=== PATIENT | male | born 1955 | race Caucasian/White ===

== ENCOUNTER → 2017-12-19 09:45 | Day surgery (SDC) | payer BC ==
[~2017-12-19 09:45] MED LIST: Buffered Lidocaine 0.9% SYRIN* 5 ML/SYR SYRINGE INTRADERM ONE; Bupivacaine 0.5%* 50 ML VIAL ONE; Dexamethasone IV* 4 MG/ML 1 ML (4 MG) IV SLOW PU ONE; Dexamethasone IV* 4 MG/ML 1 ML (4 MG) ONE; Famotidine IV* 10 MG/ML 2 ML (20 mg) IV ONE; Famotidine IV* 10 MG/ML 2 ML (20 mg) ONE; Lidocain 1% EPI 1:100,000 * 30 ML MDV ONE; Ondansetron INJ* 2 MG/ML VIAL ONE
[2017-12-19 10:30] VITALS: BP 143/88
== END | disposition home or self-care (01) ==
LOC: OR 09:45
PROVIDERS: ATTEND Surgery
DX: K42.9 Umbilical hernia without obstruction or gangrene (principal); Z53.9 Procedure and treatment not carried out, unspecified reason
CPT/HCPCS: J1100; J2405

== ENCOUNTER 2019-03-31 19:17 | Inpatient (IN) | payer MEDICARE, OTHER ==
[2019-03-31] MEDS ORDERED: Aspirin 81 mg CHEW TAB* 81 MG TAB.CHEW PO ONE (19:25)
--- NOTE | 2019-03-31 19:44 | ED ---
HPI Chest Pain - HPI Summary HPI Summary: The patient is a 63 y/o M presenting to [facility] accompanied by Petra with sudden onset left anterior CP this afternoon with exertion. He reports that he had been outside walking when the discomfort began. He is unable to discretely describe the pain, but he notes it was a discomfort. The CP is not currently present. He denies SOB, nausea, diaphoresis, cough, fever, and calf pain. He had SC at the age of 51, but he did not have any stents placed, and he has not had any cardiac difficulties since. His last cardiac stress test was in 2014. Hx of SC age 51, HLD, dementia (following SC), Alzheimer's (following SC), HTN ( resolved, was taking L-arginine), renal calculi. No cardiac surgery, no asthma, no COPD. FHx of SC in father in age 70s and materal and paternal grandfathers in ages 40s and 60s. Nonsmoker, rare EtOH, no substance use. Has taken ASA this morning. Vital signs while in room: HR 84 bpm, BP 151/93, O2 sat 98%. Home Medications Medication Instructions Recorded Confirmed Type Cholecalciferol (Vitamin D3) 5,000 unit PO EVERY OTHER DAY 09/27/13 03/31/19 History [Vitamin D] Milk Thistle 1 dose PO QAM 09/27/13 03/31/19 History Zinc Sulfate CAP* [Zinc-220 CAP*] 220 mg PO QAM 01/19/16 03/31/19 History Alpha Lipoic Acid [Alpha Lipoic 600 mg PO QAM 12/14/17 03/31/19 History Acid Extra S] Amino Acids [Amino Acid] 1 cap PO QAM 12/14/17 03/31/19 History Ashwagandhi 500 Mg 500 mg PO QAM 12/14/17 03/31/19 History Cyanocobalamin TAB* [Vitamin B12 1,000 mcg PO QAM 12/14/17 03/31/19 History TAB*] Methofolta 1,000 mcg PO QAM 12/14/17 03/31/19 History Nac Supplement 1200 Mg 1,200 mg PO QAM 12/14/17 03/31/19 History Sequim-3 Fatty Acids/Fish Oil 1 cap PO QAM 12/14/17 03/31/19 History [Sequim 3] [place] Bark 400 mg PO QAM 12/14/17 03/31/19 History - History of Current Complaint Chief Complaint: EDChestPainROMI Time Seen by Provider: 03/31/19 19:25 Hx Obtained From: Patient, Family/Electronics Commodity Manager - Petra Onset/Duration: Started Hours Ago - this afternoon (03/31/19), Resolved Timing: Lasting Hours Initial Severity: Moderate Current Severity: None Pain Intensity: 0 Pain Scale Used: 0-10 Numeric Chest Pain Location: Left Anterior Chest Pain Radiates: No Character: Other: - discomfort, unable to describe Aggravating Factor(s): Nothing Alleviating Factor(s): Nothing Associated Signs and Symptoms: Positive: Chest Pain - resolved, Other: - NEGATIVE: calf pain. Negative: Shortness of Breath, Fever, Diaphoresis, Nausea , Cough, Edema - Allergy/Home Medications Allergies/Adverse Reactions: Allergies Allergy/AdvReac Type Severity Reaction Status Date / Time No Known Allergies Allergy Verified 12/19/17 10:22 PMH/Surg Hx/FS Hx/Imm Hx Endocrine/Hematology History: Reports: Other Endocrine/Hematological Disorders - RA Denies: Hx Diabetes, Hx Thyroid Disease Cardiovascular History: Reports: Hx Hypercholesterolemia, Hx Myocardial Infarction - age 51 Denies: Hx Hypertension, Hx Pacemaker/ICD Respiratory History: Reports: Hx Sleep Apnea Denies: Hx Asthma, Hx Chronic Obstructive Pulmonary Disease (COPD) GI History: Denies: Hx Ulcer History: Reports: Hx Kidney Stones - last one 2012, Other Problems/ Disorders Denies: Hx Dialysis, Hx Renal Disease Musculoskeletal History: Reports: Hx Arthritis - Rheumatoid Sensory History: Denies: Hx Cataracts, Hx Contacts or Glasses, Hx Glaucoma, Hx Hearing Aid Opthamlomology History: Denies: Hx Cataracts, Hx Contacts or Glasses, Hx Glaucoma Neurological History: Reports: Hx Dementia - after SC, Other Neuro Impairments/ Disorders - ALZHEIMER'S DISEASE Denies: Hx Seizures, Hx Transient Ischemic Attacks (TIA) Psychiatric History: Denies: Hx Panic Disorder - Cancer History Hx Chemotherapy: No - Surgical History Surgery Procedure, Year, and Place: SPINE/BACK SURGERY (50 YEARS AGO), [facility]. SPINE/BACK SURGERY, [place] (approx 20 years ago). 03/2013 CYSTOSCOPY WITH RIGHT STENT INSERTION, [facility]-REMOVED STENT Hx Anesthesia Reactions: No Infectious Disease History: Denies: Hx Clostridium Difficile, Hx Hepatitis, Hx Human Immunodeficiency Virus (HIV), Hx Shingles, Hx Tuberculosis, History Other Infectious Disease - Family History Known Family History: Positive: Cardiac Disease - SC in father (70s) and maternal and paternal grandfathers (40s, 60s) - Social History Lives: With Family - Alcohol Use: Rare Hx Substance Use: No Substance Use Type: Reports: None Hx Tobacco Use: No Smoking Status (MU): Never Smoked Tobacco Review of Systems Negative: Fever, Skin Diaphoresis Positive: Chest Pain - discomfort (currently resolved) Negative: Shortness Of Breath, Cough Negative: Nausea Positive: Other - NEGATIVE: calf pain. Negative: Edema All Other Systems Reviewed And Are Negative: Yes Physical Exam - Summary Physical Exam Summary: Appearance: Ill-appearing, moderate pain distress, well-nourished Skin: Warm, color reflects adequate perfusion, dry Head: Normal Head/Face inspection, atraumatic Eyes: Conjunctiva clear ENT: Normal inspection Neck: Supple, no nodes, no JVD Respiratory: Lungs clear, normal breath sounds, no respiratory distress Cardio: RRR, No murmur, pulses normal, brisk capillary refill Abdomen: Soft, nontender Bowel sounds: Present Musculoskeletal: Strength Intact/ROM intact, no calf tenderness, no edema. Psychological: Normal Neuro: Alert, muscle tone normal, no focal deficit Triage Information Reviewed: Yes Vital Signs On Initial Exam: Initial Vitals Pulse Resp BP Pulse Ox 77 13 151/93 96 03/31/19 19:29 03/31/19 19:29 03/31/19 19:29 03/31/19 19:29 Vital Signs Reviewed: Yes Diagnostics - Vital Signs Vital Signs Pulse Resp BP Pulse Ox 03/31/19 19:29 77 13 151/93 96 - Laboratory Result Diagrams: 03/31/19 19:55 03/31/19 19:55 Lab Statement: Any lab studies that have been ordered have been reviewed, and results considered in the medical decision making process. - Radiology CXR Radiology Interpretation Completed By: Radiologist Summary of Radiographic Findings: Impression: Radiographically normal chest. ED physician has reviewed this report. - EKG 1922 Cardiac Rate: NL - 76 BPM EKG Rhythm: Sinus Rhythm EKG Comparison: No Significant Change - No change from EKG on 03/28/2013. Summary of EKG Findings: Nml AV/IC CT, nml QTc, LAD (-38), No STEMI. 2122 Cardiac Rate: NL - 72 BPM EKG Rhythm: Sinus Rhythm EKG Comparison: No Significant Change - No change from EKG taken at 1922. Summary of EKG Findings: Nml AV CT, prolonged IV CT (112), nml QTc, left axis (- 38). Re-Evaluation - Re-Evaluation First Eval Re-Evaluation Time: 21:45 Comment: I discussed findings with the patient. We also discussed admission. Chest Pain Course/Dx - Course Course Of Treatment: Patient's medications reviewed. Nurses' notes reviewed. Allergies reviewed. The patient is a 63 y/o M presenting to [facility] accompanied by Petra with sudden onset left anterior chest discomfort this afternoon with exertion that has since resolved. He denies diaphoresis, SOB, cough, nausea , edema, and fever. Hx of SC at age 51. Last stress test in 2014. SC in father ( 70s) and grandfathers (40s, 60s). Upon physical exam, the patient exhibits no acute abnormalities. Blood work reveals INR of 1.12, APTT of 40.0, alkaline phosphatase of 108. D-Dimer is normal at <200. First troponin is 0.06. Second troponin is 0.08. EKG reveals NSR at 76 bpm with nml AV/IC CT, nml QTc, LAD (-38 ). Repeat EKG reveals NSR at 72 bpm with nml AV CT, prolonged IV CT (112), nml QTc, left axis (-38). CXR Impression: Radiographically normal chest. In the ED course, the patient was administered ASA 324mg, Lovenox, and Lipitor. At 2129, I spoke with Dr. Keith, hospitalist, concerning the patient's case; she accpets the patient for admission. Patient is agreeable with this plan. - Chest Pain Differential Diagnosis/HQI/PQRI: Acute SC, ACS, Angina, Pulmonary Embolism - Diagnoses Provider Diagnoses: NSTEMI, initial episode of care - Provider Notifications Discussed Care Of Patient With: Carmen Keith - hospitalist Time Discussed With Above Provider: 21:30 Instructed by Provider To: Other - I spoke with Dr. Keith concerning the patient's case, and she accepts the patient for admission. Discharge - Sign-Out/Discharge Documenting (check all that apply): Patient Departure - Patient is accepted for admission by Dr. Keith. Patient Received Moderate/Deep Sedation with Procedure: No - Discharge Plan Condition: Stable Disposition: ADMITTED TO [facility] - Billing Disposition and Condition Condition: STABLE Disposition: Admitted to [facility] - Attestation Statements Document Initiated by Scribe: Yes Documenting Scribe: Geneva Shen Provider For Whom Scribe is Documenting (Include Credential): Dr. Brandee Pradhan MD Scribe Attestation: Geneva Fountain scribed for Dr. Brandee Pradhan MD on 04/01/19 at 0154. Status of Scribe Document: Ready
[2019-03-31 20:06] LABS: Hematocrit 44 % (42-52); Mean Corpuscular HGB Conc 34 g/dL (31-36); Mean Corpuscular Hemoglobin 30 pg (27-31); Mean Corpuscular Volume 88 fL (80-94); Mean Platelet Volume 8.1 fL (7.4-10.4); Platelet Count 177 10^3/uL (150-450); Red Blood Count 5.06 10^6 /uL (4.18-5.48); Red Cell Distribution Width 14 % (10-15); White Blood Count 4.3 10^3/uL (3.5-10.8)
[2019-03-31 20:19] LABS: INR 1.12 (0.82-1.09)
[2019-03-31 20:24] LABS: ALT 43 U/L (7-52); AST 34 U/L (13-39); Albumin 4.1 g/dL (3.2-5.2); Albumin/Globulin Ratio 1.7 (1-3); Alkaline Phosphatase 108 U/L (34-104); Anion Gap 7 mmol/L (2-11); BUN/Creatinine Ratio 19.3 (8-20); Blood Urea Nitrogen 22 mg/dL (6-24); CO2 Carbon Dioxide 27 mmol/L (22-32); Calcium 9.2 mg/dL (8.6-10.3); Chloride 108 mmol/L (101-111); Creatine Kinase 94 U/L (10-223); EGFR Non-African American 64.5 (>60); Globulin 2.4 g/dL (2-4); Glucose 98 mg/dL (70-100); Magnesium 2.5 mg/dL (1.9-2.7); Sodium 142 mmol/L (135-145); Total Protein 6.5 g/dL (6.4-8.9)
[2019-03-31 20:31] LABS: Troponin I 0.06 ng/mL (<0.04)
[2019-03-31 20:46] LABS: ABS Eosinophils 0.2 10^3/ul (0-0.6); ABS Monocytes 0.7 10^3/ul (0-0.8); ABS Neutrophils 2.4 10^3/ul (1.5-7.7); Eosinophil % 3.5 %; Lymphocyte % 24.1 %
[2019-03-31] MEDS ORDERED: Acetaminophen TAB* 325 MG PO PRN (22:30)
[2019-03-31] MEDS ORDERED: Atorvastatin* 80 MG TAB PO ONE (22:34)
[2019-03-31 22:53] LABS: Troponin I 0.08 ng/mL (<0.04)
[2019-04-01 02:06] LABS: Troponin I 0.07 ng/mL (<0.04)
[2019-04-01] MEDS: Heparin DRIP 25,000 UNITS(*) 25,000 UNITS/500 ML BAG IV SCH (02:16)
--- NOTE | 2019-04-01 05:06 | HP ---
CC: Dr. Jonnathan Beyer * HISTORY AND PHYSICAL: DATE OF ADMISSION: 03/31/19 PCP: Dr. Jonnathan Beeyr. HEALTHCARE PROXY: His , Shaista. CODE STATUS: DNR/DNI. CHIEF COMPLAINT: Few days of progressive intermittent left-sided chest pain. HISTORY OF PRESENT ILLNESS: Mr. Osborne is a 63-year-old man with a history of myocardial infarction, dementia, and nephrolithiasis with pyelonephritis who is presenting with a few days of chest pain. The patient has very poor memory and much history obtained from at the bedside. The patient was in his usual state of health until a few days ago when he began to feel a left-sided chest pain that he actually describes as a pressure. It was not worse with exertion and he has been physically active over the last few days. He also denies that it is worse with deep breath, positional changes, or if he presses on it. He reports that the chest pressure would come and go over the last few days, but it was progressive. He denies associated symptoms such as diaphoresis , shortness of breath, nausea, vomiting, constipation, diarrhea, abdominal pain , or lightheadedness. He states he only has chest pain, which is not bothering him much, and he is not sure if it feels like his prior heart attack. He takes aspirin at home and a statin since his prior heart attack. The patient is not currently experiencing chest pain. PAST MEDICAL HISTORY: 1. Myocardial infarction in 2006. 2. Admission in 2012 for nephrolithiasis complicated by obstruction and pyelonephritis. 3. Dementia. 4. Chronic back pain. HOME MEDICATIONS: 1. Memantine 10 mg twice a day. 2. Rosuvastatin 5 mg daily. 3. Aspirin 81 mg daily. Multiple supplements such as omega-3, ashwagana, vitamin B12. ALLERGIES: No known drug allergies. SOCIAL HISTORY: The patient lives with his . 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 His is his healthcare proxy. He denies current or history of tobacco, alcohol, or other drug use. FAMILY HISTORY: Mother had a stroke in her 60s. Father had multiple myocardial infarctions and from kidney disease. Both grandfathers had myocardial infarction. REVIEW OF SYSTEMS: A complete 10-point review of systems performed and pertinent positives and negatives are listed in the HPI. PHYSICAL EXAMINATION GENERAL: He is a well-appearing man, in no acute distress who is alert, interactive, and makes frequent jokes. VITAL SIGNS: Afebrile, heart rate 60, blood pressure 128/79, respiratory rate 15, oxygen saturation 97% on room air. HEENT: OP clear. Moist mucous membranes. NECK: No JVD. Supple. LUNGS: Clear to auscultation bilaterally. HEART: Regular rate and rhythm. No murmurs, gallops, or rubs. Chest pain not reproducible on palpation. ABDOMEN: Soft, nontender, nondistended. BACK: No CVA tenderness. EXTREMITIES: Warm and well perfused. No evidence of edema. DIAGNOSTIC STUDIES/LAB DATA: CBC and BMP within normal limits. INR 1.12. Alk phos 108. Troponin 0.06. EKG with normal sinus rhythm, rate 72, left axis deviation with intraventricular conduction delay, T-wave flattening in II and aVF with inversions in III. ASSESSMENT AND PLAN: Mr. Osborne is a 63-year-old man with a history of myocardial infarction, dementia who is presenting with intermittent progressive atypical chest pain that has resolved prior to emergency room without intervention who is found with elevated troponin. 1. Concern for [id number] myocardial infarction. Will trend patient's troponin and initiate anticoagulation if continues to increase. Will monitor closely for recurrence of chest pain with stat EKG with recurrence of symptoms. The patient has already received aspirin 324 in the emergency room and will continue on daily 81 mg. Start the patient on atorvastatin 80 mg. Will call Cardiology consult for further recommendations given elevated MUNA score to 4. We will order a transthoracic echocardiogram for the morning. 2. Dementia. Continue home memantine 10 mg twice a day. 3. DVT prophylaxis: The patient will be on subcu Lovenox unless switched to therapeutic heparin drip. 4. Diet: We will keep n.p.o. in case of stress test or procedure in the morning. 5. Code status. DNR/DNI. TIME SPENT: Approximately 60 minutes was spent on admission of this patient, more than half of which was spent at bedside for interview and exam. [id number]/[facility] #: [id number] JOSE L
[2019-04-01] MEDS: Aspirin 81 mg CHEW TAB* 81 MG TAB.CHEW PO SCH (09:19)
[2019-04-01] MEDS: Cyanocobalamin TAB* 500 MCG PO SCH (10:12)
[2019-04-01] MEDS: CMC:OMEGA-3 FATTY ACIDS (NF) 1,000 MG CAP PO SCH (10:13)
[2019-04-01] MEDS: Memantine TAB* 10 MG PO SCH ×2 (10:13→21:07)
--- NOTE | 2019-04-01 11:21 | ECHO ---
*[facility]* [place] [address] Fax #: [phone] Transthoracic Echocardiogram Patient: Killian Osborne : 1955 Study Date: 04/01/2019 Age: 63 Gender: M HR: 73 bpm Height: 67 in /170.2 cm BSA: 1.89 m^2 Weight: 169.6 lb /77.1 kg BMI: 26.6 kg/m^2 *Safety And Occupational Health Manager: * Re Daley [facility] *Referring Physician: * Carmen Keith *Reading Physician: * Johann Gore MD Indications: Chest Pain, unspecified. History: PMH: Myocardial infarction. In 2006. Functional status: Following treatment plan for sleep apnea. Dementia. Conclusions Summary: 1. Left ventricle: The cavity size is normal. Wall thickness is normal. Systolic function is normal. The estimated ejection fraction is 55-60%. 2. Left atrium: The atrium is mildly dilated. 3. Right atrium: The atrium is mildly dilated. 4. Mitral valve: There is mild regurgitation. 5. C/t 09/30/2013, mitral regurgitation is now mild instead of trace then. Left ventricle ejection fraction is stable. Study data: Transthoracic echocardiogram. Procedure: Transthoracic echocardiography was performed. Image quality was fair. Complete 2D, spectral Doppler, and color flow Doppler. Location: Bedside. Patient status: Inpatient. Patient room number: 436. Rhythm: Normal sinus rhythm. Findings Left ventricle: The cavity size is normal. Wall thickness is normal. Systolic function is normal. The estimated ejection fraction is 55-60%. Regional wall motion abnormalities: Hypokinesis of the apicalinferolateral myocardium. Doppler parameters are consistent with abnormal left ventricular relaxation (grade 1 diastolic dysfunction). Right ventricle: The cavity size is mildly dilated. Systolic function is normal. The tricuspid jet envelope definition is inadequate for estimation of RV systolic pressure. There are no indirect findings (abnormal RV volume or geometry, altered pulmonary flow velocity profile, or leftward septal displacement) which would suggest moderate or severe pulmonary hypertension. Left atrium: The atrium is mildly dilated. Right atrium: The atrium is mildly dilated. Mitral valve: The leaflets are mildly thickened. There is no evidence of stenosis. There is mild regurgitation. Aortic valve: The valve is trileaflet. The leaflets are mildly thickened. Thickening, consistent with sclerosis. There is no evidence of stenosis. There is no significant regurgitation. Tricuspid valve: The leaflets are normal thickness. There is no evidence of stenosis. There is physiologic regurgitation. Pulmonic valve: The leaflets are normal thickness. There is no evidence of stenosis. There is trivial regurgitation. Aorta: Ascending aorta: The ascending aorta is appears normal. Aortic arch: The aortic arch is appears normal. The aortic root is not dilated. Pericardium: A prominent pericardial fat pad is present. There is no significant pericardial effusion. Pulmonary arteries: The main pulmonary artery is normal-sized. Systemic veins: Inferior vena cava: The vessel is normal in size. The respirophasic diameter changes are in the normal range (>= 50%). Measurements Left ventricle Value Ref Right atrium continued Value Ref JUVENTINO, LAX 4.6 cm 4.2 - 5.8 ML dim, ES, A4C (H) 4.6 cm 2.6 - 4.4 ESD, LAX 3.5 cm 2.5 - 4.0 SI dim, ES, A4C (H) 5.8 cm 3.4 - 5.3 FS, LAX (L) 24 % 25 43 Estimated RAP 3 mm Hg --------- PW, ED, LAX 0.9 cm 0.6 - 1.0 FS (L) 24 % Aortic valve Value Ref PW, ED 0.9 cm 0.6 - 1.0 Tito diam, ED 2.0 cm --------- E', lat tito, TDI (L) 6.7 cm/sec >=10.0 Peak v, S 1.3 m/sec -- ------- E/e', lat tito, 8 VTI, S 24.5 cm ----- ---- TDI Mean grad, S 2.0 mm Hg --------- E', med tito, TDI (L) 5.2 cm/sec >=7.0 LVOT/AV, VTI ratio 0.86 -- ------- E/e', med tito, 11 TONEY, VTI 2.69 cm^2 ----- ---- TDI TONEY, Vmax 2.39 cm^2 --------- E', avg, TDI 6.0 cm/sec E/e', avg, TDI 10 <=14 Mitral valve Value Re f Peak E 0.57 m/sec --------- LVOT Value Ref Peak A 0.85 m/sec --------- Diam, S 2.00 cm Decel time 261 ms --------- Area 3.1 cm^2 Peak E/A ratio 0.7 --------- Peak pratima, S 0.99 m/sec VTI, S 21.0 cm Pulmonic valve Value Ref Mean grad, S 2 mm Hg Peak v, S 1.39 m/sec --------- SV 65 ml Peak grad, S 8.0 mm Hg --------- SV/bsa 34 ml/m^2 Aortic root Value Ref Ventricular septum Value Ref Root diam 3.3 cm <4.1 IVS, ED 0.8 cm 0.6 - 1.0 Ascending aorta Value Ref Right ventricle Value Ref AAo AP diam, S 3.3 cm --------- JUVENTINO, LAX 3.4 cm JUVENTINO minor ax, (H) 4.8 cm 1.9 - 3.5 Aortic arch Value Ref A4C mid Arch diam 2.7 cm --------- Left atrium Value Ref Decending aorta Value Ref AP dim, ES (H) 4.10 cm 3.00 - Efrain peak pratima 0.58 m/sec --------- 4.00 ML dim, A4C 4.2 cm Inferior vena cava Value Ref SI dim, A4C 6.2 cm Diam 2.2 cm --------- Vol/bsa, ES, 1-p 36 ml/m^2 12 - 37 A4C Vol/bsa, ES, A/L 30 ml/m^2 16 - 34 Right atrium Value Ref SI dim, ES (H) 5.8 cm 3.4 - 5.3 Legend: (L) and (H) pasquale values outside specified reference range. Prepared and electronically signed by Johann Gore MD 04/01/2019 11:21
--- NOTE | 2019-04-01 17:52 | PN ---
<Liza Torres - Last Filed: 04/01/19 19:30> Subjective Date of Service: 04/01/19 Interval History: 63 y/o M w/ PMH of TN and dementia p/w chest pain for 2 days. ECG looks normal but his troponin is 0.07 and he was started on aspirin and heparin. Echo didnot show any regional wall motion abnormalities. Cardiology consulted and have advised for Chemical stress test which is scheduled for tomorrow. Today patient complains of chest pain during exertion. Vitals are stable. Patient is on healthy heart diet with no caffiene and NPO after midnight for stress test. Assessment: Concern for NSTEMI. Plan: Crdiology consult. Chemical Stress test tomorrow. Objective Active Medications: Acetaminophen (Tylenol Tab*) 650 mg PO Q4H PRN PRN Reason: FEVER/PAIN Aspirin (Aspirin 81 Mg Chew Tab*) 81 mg PO DAILY [facility] Last Admin: 04/01/19 09:19 Dose: 81 mg Cyanocobalamin (Vitamin B12 Tab*) 1,000 mcg PO QAM [facility] Last Admin: 04/01/19 10:12 Dose: Not Given Fish Oil (Fish Oil (Nf)) 1,000 mg PO QAM [facility] Last Admin: 04/01/19 10:13 Dose: Not Given Heparin Sodium/Dextrose (Heparin Drip 25,000 Units(*)) 25,000 units in 500 mls @ 0 mls/hr IV PER RATE [facility]; Protocol Last Admin: 04/01/19 02:16 Dose: 19 mls/hr Memantine (Namenda Tab*) 10 mg PO BID [facility] Last Admin: 04/01/19 10:13 Dose: Not Given Vital Signs - 8 hr 04/01/19 11:47 Temperature 97.4 F Pulse Rate 82 Respiratory 20 Rate Blood Pressure 141/89 (mmHg) O2 Sat by Pulse 98 Oximetry Oxygen Devices in Use Now: None Result Diagrams: 03/31/19 19:55 03/31/19 19:55 Assess/Plan/Problems-Billing Assessment: 63 y/o M w/ PMH of TN ,dementia and nephrolithiasis p/w chest pain for 2 days. His troponin level is 0.007. Echo showed no regional wall motion abnormality. Patient is on aspirin and heparin. Plan to do stress test tomorrow. - Patient Problems (1) Chest pain Current Visit: Yes Status: Acute Code(s): R07.9 - CHEST PAIN, UNSPECIFIED SNOMED Code(s): 37075558 Comment: Concern for TN. Cardiology consulted and echo done showed no any abnormality. Scheduled for stress test for tomorrow. Troponin is 0.07. (2) Dementia Current Visit: Yes Status: Acute Code(s): F03.90 - UNSPECIFIED DEMENTIA WITHOUT BEHAVIORAL DISTURBANCE SNOMED Code(s): 98304876 Comment: Poor memory. taking memantine 10 mg twicw a day. (3) Nephrolithiasis Current Visit: No Status: Acute Code(s): N20.0 - CALCULUS OF KIDNEY SNOMED Code(s): 78529606 Comment: Admitted in 2012 for nephrolithiasis complicated by obstruction and pyelonephritis Status and Disposition: Admitted in medicine as inpatient for evaluation of chest pain. <Warren Alberts - Last Filed: 04/02/19 16:59> Objective Active Medications: Acetaminophen (Tylenol Tab*) 650 mg PO Q4H PRN PRN Reason: FEVER/PAIN Amlodipine Besylate (Norvasc Tab*) 2.5 mg PO DAILY [facility] Aspirin (Aspirin 81 Mg Chew Tab*) 81 mg PO DAILY [facility] Last Admin: 04/02/19 08:43 Dose: 81 mg Atorvastatin Calcium (Lipitor*) 10 mg PO DAILY [facility]; Protocol Cyanocobalamin (Vitamin B12 Tab*) 1,000 mcg PO QAM [facility] Last Admin: 04/02/19 08:38 Dose: Not Given Fish Oil (Fish Oil (Nf)) 1,000 mg PO QAM [facility] Last Admin: 04/02/19 08:38 Dose: Not Given Isosorbide Mononitrate (Imdur Er Tab*) 30 mg PO DAILY [facility] Last Admin: 04/02/19 16:43 Dose: 30 mg Memantine (Namenda Tab*) 10 mg PO BID [facility] Last Admin: 04/02/19 08:38 Dose: Not Given Metoprolol Tartrate (Lopressor Tab*) 12.5 mg PO Q12HR [facility] Result Diagrams: 03/31/19 19:55 03/31/19 19:55 Assess/Plan/Problems-Billing Assessment: 63 yo M h/o dementia and TN in 2006 p/w several days CP found with elevated troponin Chest pain - MUNA = 4 -troponin now downtrending, TTE without RWMA -c/w heparin -plan stress in AM -Start statin Dementia -c/w home memantine Attestation Documenting Resident: Melissa Supervising Physician: Aristeo Attestation: This service has been performed in part by a resident under the direction of a teaching physician.Aristeo Fountain, performed the service, or was physically present during the critical, or fernando portions of the service, furnished by the resident. I participated in the management of the patient.
[2019-04-01] MEDS ORDERED: Enoxaparin(*) 40 MG/0.4 ML SYR SUBCUT SCH (21:00)
[2019-04-02] MEDS: Heparin DRIP 25,000 UNITS(*) 25,000 UNITS/500 ML BAG IV SCH (05:28)
[2019-04-02] MEDS: Cyanocobalamin TAB* 500 MCG PO SCH (08:38)
[2019-04-02] MEDS: CMC:OMEGA-3 FATTY ACIDS (NF) 1,000 MG CAP PO SCH (08:38)
[2019-04-02] MEDS: Memantine TAB* 10 MG PO SCH ×2 (08:38→20:45)
[2019-04-02] MEDS: Aspirin 81 mg CHEW TAB* 81 MG TAB.CHEW PO SCH (08:43)
[2019-04-02] MEDS ORDERED: Regadenoson* 0.4 MG/5 ML SYRINGE ONE (11:54)
--- NOTE | 2019-04-02 14:05 | CONSULT ---
Subjective Date of Service: 04/02/19 - CC: CP Interval History: Full note to be dictated by ROSA M Brewer. Per , pt has 7 years of Alzheimers, known CAD with lesion in LAD not amenable to stenting in the past. Pt developed angina 3-4 days ago with hot muggy weather, was present yesterday walking to [place] here in [facility] [place]. Pt w/o co lying in bed now. Family History: Unchanged from Admission Social History: Unchanged from Admission Past Medical History: Unchanged from Admission - Includes Alzheimers dementia, CAD, dyslipidemia. Medications Active Medications: Acetaminophen (Tylenol Tab*) 650 mg PO Q4H PRN PRN Reason: FEVER/PAIN Aspirin (Aspirin 81 Mg Chew Tab*) 81 mg PO DAILY [facility] Last Admin: 04/02/19 08:43 Dose: 81 mg Atorvastatin Calcium (Lipitor*) 10 mg PO DAILY [facility]; Protocol Cyanocobalamin (Vitamin B12 Tab*) 1,000 mcg PO QAM [facility] Last Admin: 04/02/19 08:38 Dose: Not Given Fish Oil (Fish Oil (Nf)) 1,000 mg PO QAM [facility] Last Admin: 04/02/19 08:38 Dose: Not Given Memantine (Namenda Tab*) 10 mg PO BID [facility] Last Admin: 04/02/19 08:38 Dose: Not Given Metoprolol Tartrate (Lopressor Tab*) 12.5 mg PO Q12HR [facility] Home Medications: Cholecalciferol (Vitamin D3) [Vitamin D] 5,000 unit PO EVERY OTHER DAY 09/27/13 [History Confirmed 03/31/19] Milk Thistle 1 dose PO QAM 09/27/13 [History Confirmed 03/31/19] Zinc Sulfate CAP* [Zinc-220 CAP*] 220 mg PO QAM 01/19/16 [History Confirmed ] Alpha Lipoic Acid [Alpha Lipoic Acid Extra S] 600 mg PO QAM 12/14/17 [History Confirmed 03/31/19] Amino Acids [Amino Acid] 1 cap PO QAM 12/14/17 [History Confirmed 03/31/19] Ashwagandhi 500 Mg 500 mg PO QAM 12/14/17 [History Confirmed 03/31/19] Cyanocobalamin TAB* [Vitamin B12 TAB*] 1,000 mcg PO QAM 12/14/17 [History Confirmed 03/31/19] Methofolta 1,000 mcg PO QAM 12/14/17 [History Confirmed 03/31/19] Nac Supplement 1200 Mg 1,200 mg PO QAM 12/14/17 [History Confirmed 03/31/19] Muncie-3 Fatty Acids/Fish Oil [[place] 3] 1 cap PO QAM 12/14/17 [History Confirmed 03/31/19] Edgard Bark 400 mg PO QAM 12/14/17 [History Confirmed 03/31/19] Review of Systems - Measurements Intake and Output: Intake and Output Last 24 Hours 03/31/19 04/01/19 04/02/19 04/03/19 04:59 04:59 04:59 04:59 Intake Total 86.3 Output Total 0 Balance 86.3 Weight 171 lb 11.2 oz 171 lb 11.2 oz Intake: Heparin 86.3 Oral 0 Output: Urine 0 - Review of Systems General Comments: Pt and deny recent fevers, chills, no THOMPSON, orthopnea, PND, no missed meds no change in bowel or bladder habits. Review of Systems Statement: All other review of systems negative, unless stated above. Objective Vital Signs: Temp Pulse Resp BP Pulse Ox 98.1 F 74 20 150/87 98 04/02/19 07:55 04/02/19 07:55 04/02/19 08:00 04/02/19 07:55 04/02/19 07:55 Oxygen Devices in Use Now: None Appearance: fit appearing somewhat older gentleman lying at 20 degrees, no distress. Eyes: No Scleral Icterus, PERRLA Ears/Nose/Mouth/Throat: Clear Oropharnyx, Mucous Membranes Moist Neck: NL Appearance and Movements; NL JVP, Trachea Midline Respiratory: Symmetrical Chest Expansion and Respiratory Effort, Clear to Auscultation Cardiovascular: NL Sounds; No Murmurs; No JVD, RRR Abdominal: NL Sounds; No Tenderness; No Distention, No Hepatosplenomegaly Extremities: No Edema - 2-3 + Radial and PT pulses. Skin: No Rash or Ulcers Neurological: NL Gait - poor memory, NL Muscle Strength and Tone Lines/Tubes/Other Access: Clean, Dry and Intact Peripheral IV Laboratory Results: 03/31/19 19:55 03/31/19 19:55 INR (Anticoag Therapy) 1.12 (0.82-1.09) H 03/31/19 19:55 APTT 75.5 seconds (26.0-38.0) H 04/02/19 05:27 Total Bilirubin 0.40 mg/dL (0.2-1.0) 03/31/19 19:55 AST 34 U/L (13-39) 03/31/19 19:55 ALT 43 U/L (7-52) 03/31/19 19:55 Alkaline Phosphatase 108 U/L (34-104) H 03/31/19 19:55 CK-MB (CK-2) 4.0 ng/mL (0.6-6.3) 03/31/19 19:55 B-Natriuretic Peptide 46 pg/mL (<=100) 03/31/19 19:55 Total Protein 6.5 g/dL (6.4-8.9) 03/31/19 19:55 Albumin 4.1 g/dL (3.2-5.2) 03/31/19 19:55 Globulin 2.4 g/dL (2-4) 03/31/19 19:55 Albumin/Globulin Ratio 1.7 (1-3) 03/31/19 19:55 03/31/19 03/31/19 04/01/19 19:55 22:25 01:28 Troponin I 0.06 H* 0.08 H* 0.07 H* Diagnostic Imaging: Patient Name: THEA OSBORNE Medical Record#: [id number] Ordering Physician: Liza Torres MD Acct.#: [id number] : 1955 Age: 63 Sex: M Location: [address] [place] [address]/TELEMETRY Exam Date: 04/02/19 07 ADM Status: ADM IN Order Information: NUCLEAR CARDIAC STRESS TEST Myocardial perfusion scan was performed utilizing 1 day protocol. 10.98 mCi of technetium 99m tetrofosmin was injected for the rest portion of the study. Pharmacological stress was applied and 25.2 mCi of technetium 99m tetrofosmin was injected for the stress portion of the study. Attenuation correction could not be performed. There is a large inferior wall defect extending into the lateral wall. This is also present on the stress and rest images. At the margin of the rest images there may be some slight reperfusion. This is consistent with a inferolateral infarct and a small amount of bertha-infarct ischemia. The heart appears to be enlarged. The ejection fraction at stress is 54%. Evaluation of wall motion demonstrates inferior wall hypokinesis. IMPRESSION: Large inferolateral fixed defect with area of bertha-infarct ischemia. Ejection fraction of 54%. Inferior wall hypokinesis is noted. ASSESSMENT: High risk <Electronically signed by Glendy Gonzalez MD in [place]> 04/02/19 1144 Dictated By: Glendy Gonzalez MD CC:Carmen Keith MD; Jonnathan Beyer MD; Johann oGre MD; Liza Torres MD Imaging - [facility] Imaging - [facility] Imaging - [facility] [address] [facility] Transthoracic Echocardiogram Patient: Thea Osborne : 1955 Study Date: 04/01/2019 *Reading Physician: Johann George MD Indications: Chest Pain, unspecified. History: PMH: Myocardial infarction. In 2006. Functional status: Following treatment plan for sleep apnea. Dementia. Conclusions Summary: 1. Left ventricle: The cavity size is normal. Wall thickness is normal. Systolic function is normal. The estimated ejection fraction is 55-60%. 2. Left atrium: The atrium is mildly dilated. 3. Right atrium: The atrium is mildly dilated. 4. Mitral valve: There is mild regurgitation. 5. C/t 09/30/2013, mitral regurgitation is now mild instead of trace then. Left ventricle ejection fraction is stable. EKG Data: 04/01/19: NSR, 76 BPM, old PWMI, LAFB, non specific ST/T changes Assessment/Plan 63 yo with severe alzheimers, admitted with CP, small bump in trops and stress test showing IW infarct with bertha infarct ischemia. LAD territory does not show evidence of ischemia or infarct. Medical management for now, try and treat angina. Getting old films from [place] to confirm coronary anatomy and plaque areas/ burden and correlate with today's stress. If unable to improve/resolve symptoms with medical management, could consider catheterization/intervention. The patient's is aware and worried from anaesthesia discussions in the past and internet searches that anesthesia can lead to progression Alzheimers. She is concerned about risk/benfit of interventional approach. I am adding Imdur days and amlodipine for angina. LDL goal is < 70, if no lipids available from primary MD please get panel. The patient's would like to get the patient home as soon as possible. If/when angina resolves, option of discharging to home and quick follow up with cardiology in the office.
--- NOTE | 2019-04-02 14:33 | CONS ---
CONSULTATION REPORT: DATE OF CONSULT: 04/02/19 PRIMARY PHYSICIAN: Dr. Jonnathan Beyer. ATTENDING PHYSICIAN: Dr. María Prado, Cardiology.* (DICTATED BY TEENA CANALES NP) REASON FOR CONSULT: Troponinemia with complaints of chest pain. HISTORY OF PRESENT ILLNESS: This is a pleasant 63-year-old male patient with a notable history of coronary artery disease with known prior LAD lesion treated medically, in addition to obstructive sleep apnea, mild mitral regurgitation, dementia, and prior renal stones. Unfortunately, much of the information obtained for the history of present illness is limited due to the patient's baseline cognitive status; however, he states that he developed left-sided chest pain suddenly. He denies having a history of chest pain. He is not able to tell me the last episode of chest pain that he experienced. He denies dizziness, syncope, palpitations, sensation of heart racing, or shortness of breath. According to the emergency room medical records from 03/31/19, the patient developed left-sided chest pain while walking that had resolved by the time he was evaluated in the emergency room. The patient was admitted for chest pain, rule out ACS due to troponinemia. Troponin peaked on 03/31/19 at 0.08. He underwent an echocardiogram on 03/31/19. Per report, LVEF 55% to 60%, normal wall motion, mild mitral regurgitation, mild biatrial dilatation. The patient had Lexiscan stress test this morning. Nuclear imaging is pending at this time. He offers no complaints. Last echocardiogram as mentioned before 03/31/19, LVEF 55% to 60%, mild mitral regurgitation, normal wall motion. PAST MEDICAL HISTORY: 1. Prior renal calculi. 2. Obstructive sleep apnea. 3. Mild mitral regurgitation. 4. Dementia. 5. Coronary artery disease. 6. NSTEMI in 2006 with 70% LAD lesion, treated medically. PAST SURGICAL HISTORY: Includes: 1. Prior back surgery. 2. Right urethral stent in 2012. 3. Lithotripsy in 2012. 4. Cardiac catheterization in 2006. MEDICATIONS: Home medications per admission med rec: 1. Aspirin 81 mg a day. 2. Namenda 10 mg p.o. b.i.d. 3. Crestor 5 mg a day. 4. [id number] supplements. ALLERGIES: No known drug allergies. FAMILY HISTORY: Father had history of coronary artery disease in addition to paternal grandfather and maternal grandfather who at young age from coronary artery disease. SOCIAL HISTORY: The patient is and lives at home with his . 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 Denies tobacco, alcohol, or drug abuse. He is a DNR/DNI. REVIEW OF SYSTEMS: All systems have been reviewed and otherwise negative except as above mentioned in the HPI. PHYSICAL EXAM: Temperature 98.1, pulse 74, respirations 20, oxygenation 98% on room air, blood pressure 150/87. General: The patient is lying in bed upon entering the room, appears in no apparent distress, offers no complaints. He is alert to person and place, but not time. HEENT: Head is atraumatic, normocephalic. Oral mucosa is moist. Tongue is midline. Neck: Supple. Trachea midline. No JVD. No carotid bruits. Cardiac: Normal S1, S2. Regular rate and rhythm. No murmur, rub, or gallop auscultated. Lungs: Auscultated posteriorly. No evidence of adventitious breath sounds. Respirations are unlabored at a rate of 20. /GI: Abdomen is soft, nontender , nondistended. Normoactive bowel sounds x4. No hepatomegaly with palpation. Extremities: No pedal edema, no clubbing, no cyanosis. Peripheral Vascular: 2 + bilateral dorsalis pedis pulses palpated bilaterally and symmetrically. 3+ bilateral radial pulses palpated bilaterally and symmetrically. DIAGNOSTIC STUDIES/LAB DATA: Blood work obtained on 04/01/19: Troponin of 0.07. BMP from 03/31/19: Sodium 142, potassium 4, chloride 108, carbon dioxide 27, BUN 22, creatinine 1.14, glucose 98. White count 4.3, hemoglobin 15, hematocrit 44, platelets 177. INR was 1.12, D-dimer less than 200. ECG from 04/01/19: Sinus rhythm, rate 72 with new nonspecific T-wave inversion noted in leads III and aVF compared to prior ECG in 2013 with borderline intraventricular conduction delay. ASSESSMENT AND PLAN: 1. Troponinemia with complaints of exertional chest pain; troponin peaked on , echocardiogram reveals preserved LVEF with normal wall motion. The patient is status post Lexiscan nuclear stress test. At this current time, myocardial perfusion imaging is pending. Given no recurrent complaints of chest pain and troponin peaking on 03/31/19, we will discontinue IV heparin therapy, continue aspirin 81 mg a day. The patient has been hypertensive, and given history of coronary artery disease, we will start Lopressor 12.5 mg p.o. b.i.d., resume home rosuvastatin dose, and await MPI report. We will follow closely. 2. History of dementia. The patient's is healthcare proxy. If MPI report is high risk, we will need to speak to the patient's in regards to goals of care. The patient is a DNR, on Namenda therapy at home. 3. History of hyperlipidemia, on rosuvastatin 5 mg a day. Goal LDL less than 70 given history of coronary artery disease. 4. Disposition: Pending course. The patient is DNR. We will await nuclear imaging for final ischemic risk stratification due to complaints of chest pain with troponinemia. Stop IV heparin. Continue aspirin 81 mg a day. We will initiate Lopressor 25 mg a day and restart home rosuvastatin dose. Dr. María Prado has personally seen and examined the patient and agrees with the above assessment and plan. Thank you for this kind consultation. Any future questions or concerns, please do not hesitate to contact our practice. TEENA CANALES NP [id number]/CPS #: [id number] Large inferolateral fixed defect with reversible ischemia. The patient's preferred medical management to minimize risk to Alzheimer's. The patient became CP free with addition of nitrates and Imdur. LS. DOMINGO
[2019-04-02] MEDS: Isosorbide Mononitrate ER TAB* 30 MG PO SCH (16:43)
--- NOTE | 2019-04-02 17:08 | PN ---
<Liza Torres - Last Filed: 04/02/19 17:01> Subjective Date of Service: 04/02/19 Interval History: Mr. Osborne has no any acute complains. No any chest discomfort, SOB, fever or extremities swelling. Objective Active Medications: Acetaminophen (Tylenol Tab*) 650 mg PO Q4H PRN PRN Reason: FEVER/PAIN Amlodipine Besylate (Norvasc Tab*) 2.5 mg PO DAILY [facility] Aspirin (Aspirin 81 Mg Chew Tab*) 81 mg PO DAILY [facility] Last Admin: 04/02/19 08:43 Dose: 81 mg Atorvastatin Calcium (Lipitor*) 10 mg PO DAILY [facility]; Protocol Cyanocobalamin (Vitamin B12 Tab*) 1,000 mcg PO QAM [facility] Last Admin: 04/02/19 08:38 Dose: Not Given Fish Oil (Fish Oil (Nf)) 1,000 mg PO QAM [facility] Last Admin: 04/02/19 08:38 Dose: Not Given Isosorbide Mononitrate (Imdur Er Tab*) 30 mg PO DAILY [facility] Last Admin: 04/02/19 16:43 Dose: 30 mg Memantine (Namenda Tab*) 10 mg PO BID [facility] Last Admin: 04/02/19 08:38 Dose: Not Given Metoprolol Tartrate (Lopressor Tab*) 12.5 mg PO Q12HR [facility] Oxygen Devices in Use Now: None Exam: Patient is in no acute distress. Result Diagrams: 03/31/19 19:55 03/31/19 19:55 Assess/Plan/Problems-Billing Assessment: 63 yo M with PMH of NJ(age 51) and dementia presented with complain of atypical chest pain. During hospital stay, his troponin wa 0.07 and EKG and Echo didnot show any abnormalities. - Patient Problems (1) Chest pain Current Visit: Yes Status: Acute Code(s): R07.9 - CHEST PAIN, UNSPECIFIED SNOMED Code(s): 15237547 Comment: Concern for NJ.Stress test done today and showed fixed defect with bertha-infarct ischemia. Cardiology consulted and in agreement with his they are going with medical management. But if symptom persist may need cardiac catheterization. Imdur and amlodipine added as per cardio consultation. Monitor for any symptoms. (2) Dementia Current Visit: Yes Status: Acute Code(s): F03.90 - UNSPECIFIED DEMENTIA WITHOUT BEHAVIORAL DISTURBANCE SNOMED Code(s): 87578045 Comment: Poor memory. taking memantine 10 mg twicw a day. (3) Nephrolithiasis Current Visit: No Status: Acute Code(s): N20.0 - CALCULUS OF KIDNEY SNOMED Code(s): 56111056 Comment: Admitted in 2012 for nephrolithiasis complicated by obstruction and pyelonephritis Status and Disposition: Admitted in medicine as inpatient for evaluation of chest pain. <Warren Alberts - Last Filed: 04/02/19 18:00> Objective Active Medications: Acetaminophen (Tylenol Tab*) 650 mg PO Q4H PRN PRN Reason: FEVER/PAIN Amlodipine Besylate (Norvasc Tab*) 2.5 mg PO DAILY [facility] Aspirin (Aspirin 81 Mg Chew Tab*) 81 mg PO DAILY [facility] Last Admin: 04/02/19 08:43 Dose: 81 mg Atorvastatin Calcium (Lipitor*) 10 mg PO DAILY [facility]; Protocol Cyanocobalamin (Vitamin B12 Tab*) 1,000 mcg PO QAM [facility] Last Admin: 04/02/19 08:38 Dose: Not Given Fish Oil (Fish Oil (Nf)) 1,000 mg PO QAM [facility] Last Admin: 04/02/19 08:38 Dose: Not Given Isosorbide Mononitrate (Imdur Er Tab*) 30 mg PO DAILY [facility] Last Admin: 04/02/19 16:43 Dose: 30 mg Memantine (Namenda Tab*) 10 mg PO BID [facility] Last Admin: 04/02/19 08:38 Dose: Not Given Metoprolol Tartrate (Lopressor Tab*) 12.5 mg PO Q12HR [facility] Result Diagrams: 03/31/19 19:55 03/31/19 19:55 Assess/Plan/Problems-Billing S: Pt demnies CP but indicated he developed CP on ambulation to bathroom O: Sitting up in bed, NAD rrr, no mrg CTab/l no c/c/i AOx3 Assessment: 63 yo M h/o NJ pw several days CP (MUNA 4) found with mild inc troponins, normal TTE and high risk stress test CAD- appreciate cardiology. Plan to proceed with medical management -norvasc, imdur, metoprolol and home dose statin -check lipids in AM -ambulate prior to discharge -tele o/n Attestation Documenting Resident: Melissa Supervising Physician: Aristeo Attestation: This service has been performed in part by a resident under the direction of a teaching physician.Aristeo Fountain, performed the service, or was physically present during the critical, or fernando portions of the service, furnished by the resident. I participated in the management of the patient.
[2019-04-02] MEDS: Metoprolol Tartrate TAB* 25 MG PO SCH (20:45)
[2019-04-03 07:21] LABS: HDL Cholesterol 35.9 mg/dL
[2019-04-03] MEDS: Memantine TAB* 10 MG PO SCH (07:48)
[2019-04-03] MEDS: Cyanocobalamin TAB* 500 MCG PO SCH (07:48)
[2019-04-03] MEDS: Isosorbide Mononitrate ER TAB* 30 MG PO SCH (07:48)
[2019-04-03] MEDS: Metoprolol Tartrate TAB* 25 MG PO SCH (07:49)
[2019-04-03] MEDS: Aspirin 81 mg CHEW TAB* 81 MG TAB.CHEW PO SCH (07:49)
[2019-04-03] MEDS: CMC:OMEGA-3 FATTY ACIDS (NF) 1,000 MG CAP PO SCH (07:51)
[2019-04-03] MEDS ORDERED: Atorvastatin* 10 MG TAB PO SCH (09:00)
--- NOTE | 2019-04-03 10:28 | PN ---
Subjective Date of Service: 04/03/19 - CC: CP, elevated troponins. Interval History: No CP, no head aches, no c/o. Per nursing not problems, no CP overnight. The patient did not remember who I was or that I was an MD. Medications Active Medications: Acetaminophen (Tylenol Tab*) 650 mg PO Q4H PRN PRN Reason: FEVER/PAIN Amlodipine Besylate (Norvasc Tab*) 2.5 mg PO DAILY [facility] Aspirin (Aspirin 81 Mg Chew Tab*) 81 mg PO DAILY [facility] Last Admin: 04/03/19 07:49 Dose: 81 mg Atorvastatin Calcium (Lipitor*) 10 mg PO DAILY [facility]; Protocol Last Admin: 04/03/19 07:49 Dose: 10 mg Cyanocobalamin (Vitamin B12 Tab*) 1,000 mcg PO QAM [facility] Last Admin: 04/03/19 07:48 Dose: 1,000 mcg Fish Oil (Fish Oil (Nf)) 1,000 mg PO QAM [facility] Last Admin: 04/03/19 07:51 Dose: 1,000 mg Isosorbide Mononitrate (Imdur Er Tab*) 30 mg PO DAILY [facility] Last Admin: 04/03/19 07:48 Dose: 30 mg Memantine (Namenda Tab*) 10 mg PO BID [facility] Last Admin: 04/03/19 07:48 Dose: 10 mg Metoprolol Tartrate (Lopressor Tab*) 12.5 mg PO Q12HR [facility] Last Admin: 04/03/19 07:49 Dose: 12.5 mg Objective Vital Signs: Temp Pulse Resp BP Pulse Ox 98.2 F 85 20 128/64 95 04/03/19 08:05 04/03/19 08:05 04/03/19 08:05 04/03/19 08:05 04/03/19 08:05 Oxygen Devices in Use Now: None Appearance: fit appearing somewhat older gentleman lying at 20 degrees, no distress. Eyes: No Scleral Icterus, PERRLA Ears/Nose/Mouth/Throat: Clear Oropharnyx, Mucous Membranes Moist Neck: NL Appearance and Movements; NL JVP, Trachea Midline Respiratory: Symmetrical Chest Expansion and Respiratory Effort, Clear to Auscultation Cardiovascular: NL Sounds; No Murmurs; No JVD, RRR Abdominal: NL Sounds; No Tenderness; No Distention, No Hepatosplenomegaly Extremities: No Edema - 2-3 + Radial and PT pulses. Skin: No Rash or Ulcers Neurological: NL Gait - poor memory, NL Muscle Strength and Tone Lines/Tubes/Other Access: Clean, Dry and Intact Peripheral IV Laboratory Results: 03/31/19 19:55 03/31/19 19:55 INR (Anticoag Therapy) 1.12 (0.82-1.09) H 03/31/19 19:55 APTT 75.5 seconds (26.0-38.0) H 04/02/19 05:27 Total Bilirubin 0.40 mg/dL (0.2-1.0) 03/31/19 19:55 AST 34 U/L (13-39) 03/31/19 19:55 ALT 43 U/L (7-52) 03/31/19 19:55 Alkaline Phosphatase 108 U/L (34-104) H 03/31/19 19:55 CK-MB (CK-2) 4.0 ng/mL (0.6-6.3) 03/31/19 19:55 B-Natriuretic Peptide 46 pg/mL (<=100) 03/31/19 19:55 Total Protein 6.5 g/dL (6.4-8.9) 03/31/19 19:55 Albumin 4.1 g/dL (3.2-5.2) 03/31/19 19:55 Globulin 2.4 g/dL (2-4) 03/31/19 19:55 Albumin/Globulin Ratio 1.7 (1-3) 03/31/19 19:55 Triglycerides 109 mg/dL 04/03/19 05:21 Cholesterol 118 mg/dL 04/03/19 05:21 LDL Cholesterol 60 mg/dL 04/03/19 05:21 HDL Cholesterol 35.9 mg/dL 04/03/19 05:21 03/31/19 03/31/19 04/01/19 19:55 22:25 01:28 Troponin I 0.06 H* 0.08 H* 0.07 H* Diagnostic Imaging: Patient Name: THEA OSBORNE Medical Record#: [id number] Ordering Physician: Liza Torres MD Acct.#: [id number] : 1955 Age: 63 Sex: M Location: [address] [place] [address]/TELEMETRY Exam Date: 04/02/19 0700 ADM Status: ADM IN Order Information: NUCLEAR CARDIAC STRESS TEST Myocardial perfusion scan was performed utilizing 1 day protocol. 10.98 mCi of technetium 99m tetrofosmin was injected for the rest portion of the study. Pharmacological stress was applied and 25.2 mCi of technetium 99m tetrofosmin was injected for the stress portion of the study. Attenuation correction could not be performed. There is a large inferior wall defect extending into the lateral wall. This is also present on the stress and rest images. At the margin of the rest images there may be some slight reperfusion. This is consistent with a inferolateral infarct and a small amount of bertha-infarct ischemia. The heart appears to be enlarged. The ejection fraction at stress is 54%. Evaluation of wall motion demonstrates inferior wall hypokinesis. IMPRESSION: Large inferolateral fixed defect with area of bertha-infarct ischemia. Ejection fraction of 54%. Inferior wall hypokinesis is noted. ASSESSMENT: High risk <Electronically signed by Glendy Gonzalez MD in [place]> 04/02/19 1144 Dictated By: Glendy Gonzalez MD CC:Carmen Keith MD; Jonnathan Beyer MD; Johann Gore MD; Liza Torres MD Imaging - [facility] Imaging - [facility] Imaging - [facility] [address] Transthoracic Echocardiogram Patient: Thea Osborne : 1955 Study Date: 04/01/2019 *Reading Physician: * Johann Gore MD Indications: Chest Pain, unspecified. History: PMH: Myocardial infarction. In 2006. Functional status: Following treatment plan for sleep apnea. Dementia. Conclusions Summary: 1. Left ventricle: The cavity size is normal. Wall thickness is normal. Systolic function is normal. The estimated ejection fraction is 55-60%. 2. Left atrium: The atrium is mildly dilated. 3. Right atrium: The atrium is mildly dilated. 4. Mitral valve: There is mild regurgitation. 5. C/t 09/30/2013, mitral regurgitation is now mild instead of trace then. Left ventricle ejection fraction is stable. EKG Data: 04/01/19: NSR, 76 BPM, old PWMI, LAFB, non specific ST/T changes Assessment/Plan 63 yo with severe alzheimers, admitted with CP, small bump in trops and stress test showing IW infarct with bertha infarct ischemia. LAD territory does not show evidence of ischemia or infarct. Medical management initiated with nitrate, amlodipine, BB and no hx CP since. Needs to ambulate today on these meds. is not interested in interventional approach due to potential of anaesthesia to impact Alzheimers. Awaiting records/old films from [place] to confirm coronary anatomy and plaque areas/burden and correlate with today's stress. If angina free at usual activity, OK to discharge home, f/u cardiology next week. .
[2019-04-03 11:28] VITALS: BP 120/62
--- NOTE | 2019-04-03 19:58 | DS ---
Resident Discharge Summary Discharge Summary: Date of Admission: 04/01/19 Date of Discharge: 04/03/19 Admitting MD: Carmen Keith MD Attending MD: Carmen Keith MD Primary Care Physician: Jonnathan Beyer MD Home Medications Medication Instructions Recorded Confirmed Type Cholecalciferol (Vitamin D3) 5,000 unit PO EVERY OTHER DAY 09/27/13 03/31/19 History [Vitamin D3] Milk Thistle 1 dose PO QAM 09/27/13 03/31/19 History Zinc Sulfate CAP* [Zinc-220 CAP*] 220 mg PO QAM 01/19/16 03/31/19 History Alpha Lipoic Acid 600 mg PO QAM 12/14/17 03/31/19 History Amino Acids [Amino Acid] 1 cap PO QAM 12/14/17 03/31/19 History Ashwagandhi 500 Mg 500 mg PO QAM 12/14/17 03/31/19 History Cyanocobalamin TAB* [Vitamin B12 1,000 mcg PO QAM 12/14/17 03/31/19 History TAB*] Methofolta 1,000 mcg PO QAM 12/14/17 03/31/19 History Nac Supplement 1200 Mg 1,200 mg PO QAM 12/14/17 03/31/19 History Westby-3 Fatty Acids/Fish Oil 1 cap PO QAM 12/14/17 03/31/19 History [Westby 3 1,000 mg Softgel] Wallace Bark 400 mg PO QAM 12/14/17 03/31/19 History Aspirin 81 mg CHEW TAB* 81 mg PO DAILY tab.chew 04/03/19 Rx Atorvastatin* [Lipitor 40 MG*] 40 mg PO QPM #30 tab 04/03/19 Rx Isosorbide Mononitrate ER TAB* 30 mg PO DAILY #30 tab.er 04/03/19 Rx [Imdur ER TAB*] Memantine TAB* [Namenda TAB*] 10 mg PO BID tab 04/03/19 Rx Metoprolol Tartrate TAB* 12.5 mg PO Q12HR #60 tab 04/03/19 Rx [Lopressor TAB*] amLODIPine TAB* [Norvasc 5 mg TAB*] 2.5 mg PO DAILY #30 tab 04/03/19 Rx Disposition: Home Condition: Stable and ambulatory. Primary Diagnosis: Chest pain Diagnostic Imaging: Stress test: Fixed defect with srea of bertha infarct ischemia. TT : Normal EF and no RWMA cHEST xRAY: nORMAL Pertinent Laboratory Results: Troponin was 0.07 Hospital Course: 63 yo M with PMH of [place](age 51) and dementia presented with complain of atypical chest pain. During hospital stay, his troponin wa 0.07 and EKG and Echo didnot show any abnormalities. Stress test showed some bertha infarcr ischemia. Cardiology consulted and with patient agrrement decided to proceed with medical management. No any acute events in hospital. Follow Up Instructions: In case of an emergency or after clinic hours, please go to your nearest Emergency Department. You may also call the [facility] clicking machine operator at ( [phone]. Fllow up with PCP after 7 days. If any symptom, contact immediately.
[2019-04-03] MEDS ORDERED: amLODIPine TAB* 5 MG PO SCH (21:00)
--- NOTE | 2019-04-03 23:36 | DS ---
CC: Dr. Beyer * DISCHARGE SUMMARY: DATE OF ADMISSION: 03/31/19 DATE OF DISCHARGE: 04/03/19 PRIMARY CARE PROVIDER: Dr. Beyer. DISPOSITION ON DISCHARGE: Home. CONDITION ON DISCHARGE: Stable. PRIMARY DIAGNOSIS: Chest pain. SECONDARY DIAGNOSES: Include: 1. Dementia. 2. Chronic back pain. 3. History of myocardial infarction. HOME MEDICATIONS: Include: 1. Zinc sulfate. 2. . 3. Strat[place]-3 fatty acid. 4. Mag supplement. 5. Milk thistle. 6. Methylfolate. 7. Cyanocobalamin 1000 mcg in the morning. 8. Vitamin D3 of 5000 units every other day. 9. Ashwagandha. 10. Amino acids. 11. Alpha lipoic acid. 12. Amlodipine 2.5 mg. 13. Metoprolol tartrate 12.5 mg twice daily. 14. Memantine 10 mg twice daily. 15. Imdur 30 mg daily. 16. Atorvastatin 40 mg in the evening. 17. Aspirin 81 mg daily. Please note the addition of amlodipine, metoprolol, isosorbide mononitrate, atorvastatin, and aspirin. DIAGNOSTIC STUDIES/LAB DATA: Pertinent laboratory data: Troponin I is 0.06, increased to 0.08 at its peak. Total cholesterol 118, LDL 60, HDL 35.9. Pertinent imaging studies: Transthoracic echocardiogram, normal left ventricular wall thickness and function. Estimated EF 55% to 60%. Mildly dilated left atrium and right atrium. Mild MR. Nuclear Lexiscan, impression: Large inferolateral fixed defect with area of bertha- infarct ischemia. Assessment was high risk. CONSULTATIONS DURING HOSPITAL STAY: Cardiology. HISTORY OF PRESENT ILLNESS AND HOSPITAL COURSE: A 63-year-old man with past medical history as outlined above, presented to the hospital with several episodes of chest pain proceeding to admission. His MUNA score was 4. He is started on heparin. Cardiac consultation was obtained as well as transthoracic echocardiogram. Recommendation was for a stress test which was performed with results indicated above, high-risk stress test. He was seen in consultation with Dr. María Prado in conjunction with patient-centered approach including his healthcare proxy, who is his . Decision was made for medical management at this time including the addition of aforementioned medications as indicated above. However, it was noted that if the patient should continue to have any chest pain, he would be referred for left heart cath. There is some concern from the patient's that any anesthesia administered for left heart cath would lead to progression of the patient's Alzheimer disease. I discussed this is not like the case and that the benefits may outweigh the risk if the need for left heart cath is ultimately recommended by a information technology administrator. The patient had no additional chest pain after initiation of his medication regimen and ambulating around the unit. At followup, please: 1. Evaluate for any recurrent chest pain symptoms which would prompt urgent referral or which would prompt readmission to the hospital. 2. Ensure the patient follows with Dr. Prado in 1 week. 3. Evaluate for intolerance of medications, including blood pressure and heart rate which were stable after initiation on the day of discharge. Reasons to return to the hospital including but not limited to recurrent or worsening symptoms, chest pain, shortness of breath, nausea, vomiting, lightheadedness, loss of consciousness, near loss of consciousness, inability to obtain or tolerate medications discussed with the family. TIME SPENT: Greater than 45 minutes was spent in the discharge of the patient. [id number]/CPS #: [id number] MTDGonzales
== END 2019-04-03 15:30 | disposition home or self-care (01) | DRG 303 ==
LOC: ED 19:17 → MEDTELE 22:30 → OBSVTOIN 04-01 17:34
PROVIDERS: ADMIT Internal Medicine; ATTEND Internal Medicine
PROC: 4A02XM4 Measurement of Cardiac Total Activity, External Approach (ICD-10-PCS; principal; 2019-04-02)
DX: I25.119 Atherosclerotic heart disease of native coronary artery with unspecified angina pectoris (principal); E78.00 Pure hypercholesterolemia, unspecified; G47.30 Sleep apnea, unspecified; N20.0 Calculus of kidney; M06.9 Rheumatoid arthritis, unspecified; G30.9 Alzheimer's disease, unspecified; G89.29 Other chronic pain; M54.9 Dorsalgia, unspecified; Z66 Do not resuscitate; F02.80 Dementia in other diseases classified elsewhere, unspecified severity, without behavioral disturbance, psychotic disturbance, mood disturbance, and anxiety; G47.33 Obstructive sleep apnea (adult) (pediatric); I34.0 Nonrheumatic mitral (valve) insufficiency; R79.89 Other specified abnormal findings of blood chemistry; I44.4 Left anterior fascicular block; Z79.82 Long term (current) use of aspirin; I25.2 Old myocardial infarction; Z82.49 Family history of ischemic heart disease and other diseases of the circulatory system
CPT/HCPCS: 36415; 71045; 78452; 80053; 80061; 82550; 82553; 83605; 83735; 83880; 84484; 85025; 85060; 85379; 85610; 85730; 93005; 93017; 93306; 99284; A9270-GY; A9502; J2785

== ENCOUNTER 2019-04-12 20:39 | Inpatient (IN) | payer MEDICARE, OTHER ==
[2019-04-12 21:05] LABS: ABS Basophils 0.1 10^3/ul (0-0.2); ABS Eosinophils 0.2 10^3/ul (0-0.6); ABS Lymphocytes 1.1 10^3/ul (1.0-4.8); ABS Monocytes 0.8 10^3/ul (0-0.8); ABS Neutrophils 4.2 10^3/ul (1.5-7.7); Eosinophil % 3.5 %; Hematocrit 45 % (42-52); Hemoglobin 15.2 g/dL (14.0-18.0); Lymphocyte % 17.5 %; Mean Corpuscular HGB Conc 34 g/dL (31-36); Mean Corpuscular Hemoglobin 30 pg (27-31); Mean Corpuscular Volume 88 fL (80-94); Mean Platelet Volume 8.2 fL (7.4-10.4); Nucleated Red Blood Cells % 0.1; Platelet Count 255 10^3/uL (150-450); Red Blood Count 5.13 10^6 /uL (4.18-5.48); Red Cell Distribution Width 14 % (10-15); White Blood Count 6.4 10^3/uL (3.5-10.8)
[2019-04-12] MEDS ORDERED: Nitroglycerin TAB 0.4 MG* 0.4 MG TAB SL PRN (21:09)
[2019-04-12] MEDS ORDERED: Heparin DRIP 25,000 UNITS(*) 25,000 UNITS/500 ML BAG IV ONE ×2 (21:09→22:44)
[2019-04-12] MEDS ORDERED: fentaNYL* 50 MCG/ML 2 ML VIAL (100 MCG VIAL) IV PRN (21:09)
--- NOTE | 2019-04-12 21:10 | ED ---
HPI Chest Pain - HPI Summary HPI Summary: This pt is a 63 y/o male, accompanied by , presenting to [facility] c/o left sided chest pain today. Pt was hospitalized for chest pain and was discharged home about 1.5 weeks ago on 04/03/19. While in the hospital Dr. Prado consulted for the patient and patient had a stress test. reports pt has had minimal intermittent chest pain since being home. Per , pt's chest was bothering him last night but was able to sleep through the night. Today during the day pt went swimming at [place] with his son and grandkids and was feeling well, per . At about 20:00 today while pt was resting on his chair began to experience left sided chest pain. Per this is the same pain pt has had but "way worse." Patient states he still has chest pain on the left side. Denies nausea, vomiting, SOB, diaphoresis. denies any changes in medications since being discharged from the hospital. Pt has not received nitroglycerin today. Pt with hx of Alzheimer's. - History of Current Complaint Chief Complaint: EDChestPainROMI Time Seen by Provider: 04/12/19 21:01 Hx Obtained From: Patient, Family/Art Tracer - Onset/Duration: Started Hours Ago, Still Present Timing: Lasting Hours Current Severity: Moderate Pain Intensity: 5 Pain Scale Used: 0-10 Numeric Chest Pain Location: Left Anterior Chest Pain Radiates: No Aggravating Factor(s): Nothing Alleviating Factor(s): Nothing Associated Signs and Symptoms: Positive: Chest Pain. Negative: Shortness of Breath, Fever, Chills, Diaphoresis, Nausea, Vomiting - Additional Pertinent History Primary Care Physician: [id number] - Allergy/Home Medications Allergies/Adverse Reactions: Allergies Allergy/AdvReac Type Severity Reaction Status Date / Time No Known Allergies Allergy Verified 04/12/19 23:52 PMH/Surg Hx/FS Hx/Imm Hx Endocrine/Hematology History: Reports: Other Endocrine/Hematological Disorders - RA Denies: Hx Diabetes, Hx Thyroid Disease Cardiovascular History: Reports: Hx Angina, Hx Hypercholesterolemia, Hx Myocardial Infarction - age 51 Denies: Hx Hypertension, Hx Pacemaker/ICD Respiratory History: Reports: Hx Sleep Apnea Denies: Hx Asthma, Hx Chronic Obstructive Pulmonary Disease (COPD) GI History: Denies: Hx Ulcer History: Reports: Hx Kidney Stones - last one 2012, Other Problems/ Disorders Denies: Hx Dialysis, Hx Renal Disease Musculoskeletal History: Reports: Hx Arthritis - Rheumatoid Sensory History: Denies: Hx Cataracts, Hx Contacts or Glasses, Hx Glaucoma, Hx Hearing Aid Opthamlomology History: Denies: Hx Cataracts, Hx Contacts or Glasses, Hx Glaucoma Neurological History: Reports: Hx Dementia - after [place], Other Neuro Impairments/ Disorders - ALZHEIMER'S DISEASE Denies: Hx Seizures, Hx Transient Ischemic Attacks (TIA) Psychiatric History: Denies: Hx Panic Disorder - Cancer History Hx Chemotherapy: No - Surgical History Surgery Procedure, Year, and Place: SPINE/BACK SURGERY (50 YEARS AGO), [facility]. SPINE/BACK SURGERY, [facility] (approx 20 years ago). 03/2013 CYSTOSCOPY WITH RIGHT STENT INSERTION, [facility]-REMOVED STENT Hx Anesthesia Reactions: No Infectious Disease History: No Infectious Disease History: Denies: Hx Clostridium Difficile, Hx Hepatitis, Hx Human Immunodeficiency Virus (HIV), Hx Shingles, Hx Tuberculosis, History Other Infectious Disease, Traveled Outside the [place] in Last 30 Days - Family History Known Family History: Positive: Cardiac Disease - [place] in father (70s) and maternal and paternal grandfathers (40s, 60s) - Social History Alcohol Use: Rare Hx Substance Use: No Substance Use Type: Reports: None Hx Tobacco Use: No Smoking Status (MU): Never Smoked Tobacco Have You Smoked in the Last Year: No Review of Systems Negative: Fever, Chills, Skin Diaphoresis Positive: Chest Pain Negative: Shortness Of Breath Negative: Vomiting, Nausea All Other Systems Reviewed And Are Negative: Yes Physical Exam - Summary Physical Exam Summary: Appearance: Well-appearing, Well-nourished, lying in bed comfortably Skin: Warm, dry, no obvious rash Eyes: sclera anicteric, no conjunctival pallor ENT: mucous membranes moist, pharynx appears normal Neck: Supple, nontender Respiratory: Clear to auscultation, no signs of respiratory distress Cardiovascular: Normal S1, S2. No murmurs. Normal distal pulses in tibial and radial bilaterally. Abdomen: Soft, nontender, normal active bowel sounds present Musculoskeletal: Normal, Strength/ROM Intact Neurological: A&Ox3, awake and alert, mentation is normal, speech is fluent and appropriate Psychiatric: affect is normal, does not appear anxious or depressed Triage Information Reviewed: Yes Vital Signs On Initial Exam: Initial Vitals Temp Pulse Resp BP Pulse Ox 98.9 F 92 16 166/80 98 04/12/19 20:40 04/12/19 20:40 04/12/19 20:40 04/12/19 20:40 04/12/19 20:40 Vital Signs Reviewed: Yes Diagnostics - Vital Signs Vital Signs Temp Pulse Resp BP Pulse Ox 04/12/19 20:40 98.9 F 92 16 166/80 98 - Laboratory Result Diagrams: 04/13/19 06:51 04/13/19 02:30 Lab Statement: Any lab studies that have been ordered have been reviewed, and results considered in the medical decision making process. - EKG 20:42 Cardiac Rate: NL - at 92 bpm EKG Rhythm: Sinus Rhythm Summary of EKG Findings: Sinus rhythm at 92 bpm. No STEMI. T waves changes inferiorly compared to baseline. Chest Pain Course/Dx - Course Assessment/Plan: Pt is a 63 y/o male, accompanied by , [facility] c /o left sided chest pain today. Pt was hospitalized for chest pain and was discharged home about 1.5 weeks ago on 04/03/19. Per , pt's chest was bothering him last night but was able to sleep through the night. At about 20: 00 today while pt was resting on his chair began to experience left sided chest pain. Per this is the same pain pt has had but "way worse.". Lab results unremarkable except for creatinine of 1.22, troponin of 0.24. EKG shows sinus rhythm at 92 bpm. No STEMI. T waves changes inferiorly compared to baseline. In the ED course the pt was given heparin drip, heparin vial, fentanyl, nitroglycerin. Discussed the case with Dr. Moffett, hospitalist, who accepted the pt for admission. - Diagnoses Provider Diagnoses: NSTEMI (non-ST elevated myocardial infarction) - Provider Notifications Discussed Care Of Patient With: Ally Moffett - hospitalist Time Discussed With Above Provider: 00:08 Instructed by Provider To: Admit As Inpatient - Critical Care Time Critical Care Time: 30-74 min Discharge - Sign-Out/Discharge Documenting (check all that apply): Patient Departure - Admit to [facility] Patient Received Moderate/Deep Sedation with Procedure: No - Discharge Plan Condition: Stable Disposition: ADMITTED TO [facility] - Billing Disposition and Condition Condition: STABLE Disposition: [facility] - Attestation Statements Document Initiated by Rossana: Yes Documenting Renataibe: Carmen López Provider For Whom Rossana is Documenting (Include Credential): Varinder Cottrell MD Scrib[place]ie Attestation: Carmen Fountain, scribed for Varinder Cottrell MD on 04/13/19 at 1846. Scribe Documentation Reviewed: Yes Provider Attestation: The documentation as recorded by the Carmen nina accurately reflects the service I personally performed and the decisions made by me, Varinder Cottrell MD Status of Scribe Document: Viewed
[2019-04-12 21:16] LABS: INR 1.13 (0.82-1.09)
[2019-04-12 21:21] LABS: Albumin 4.4 g/dL (3.2-5.2); Albumin/Globulin Ratio 1.5 (1-3); BUN/Creatinine Ratio 17.2 (8-20); Calcium 9.5 mg/dL (8.6-10.3); EGFR African American 72.1 (>60); EGFR Non-African American 59.6 (>60); Globulin 2.9 g/dL (2-4); Potassium 4.3 mmol/L (3.5-5.0); Total Bilirubin 0.5 mg/dL (0.2-1.0); Total Protein 7.3 g/dL (6.4-8.9)
[2019-04-12 21:23] LABS: Troponin I 0.02 ng/mL (<0.04)
[2019-04-12] MEDS ORDERED: Heparin VIAL(*) 5000 UNITS/ML VIAL (FIVE THOUSAND) IV SCH (22:00)
[2019-04-12] MEDS ORDERED: Heparin VIAL(*) 5000 UNITS/ML VIAL (FIVE THOUSAND) IV PRN (23:01)
[2019-04-13 00:03] LABS: Troponin I 0.24 ng/mL (<0.04)
[2019-04-13] MEDS ORDERED: Al Hydrox/Mg Hydrox/Simet LIQ* 30 ML UDC PO PRN (01:45)
[2019-04-13] MEDS ORDERED: Morphine INJ* 2 MG/ML 1 ML SYRINGE (TWO MG - NEW SYRINGE VERSION) IV PRN (01:45)
[2019-04-13] MEDS ORDERED: Acetaminophen TAB* 325 MG PO PRN (01:45)
[2019-04-13] MEDS ORDERED: Nitroglycerin TAB 0.4 MG* 0.4 MG TAB SL PRN (02:09)
[2019-04-13] MEDS ORDERED: Heparin VIAL(*) 5000 UNITS/ML VIAL (FIVE THOUSAND) IV PRN (02:13)
[2019-04-13 02:54] LABS: EGFR African American 87.7 (>60); EGFR Non-African American 72.5 (>60)
[2019-04-13 03:01] LABS: Troponin I 0.81 ng/mL (<0.04)
--- NOTE | 2019-04-13 06:30 | HP ---
CC: Dr. Prado; Dr. Beyer * HISTORY AND PHYSICAL: DATE OF ADMISSION: 04/13/19 PRIMARY CARE PROVIDER: Dr. Beyer. CHIEF COMPLAINT: Chest pain. HISTORY OF PRESENT ILLNESS: Killian Osborne is a 63-year-old male with history of recent hospitalization that ended on 04/03/19 for chest pain during which the patient was noted to have mild elevation of troponin and a cardiac stress test that showed large area of inferior ischemia. The patient was seen in consultation by Dr. Prado. Due to the patient's baseline dementia, the patient's and healthcare proxy decided not to proceed with cardiac catheterization and to treat the patient's symptoms medically. The patient was discharged on 04/03/19 with scheduled Imdur and Norvasc as well as metoprolol. The patient today presented with chest pain. Unfortunately, his healthcare proxy and primary water mangle tender, his , Shaista, just left the hospital and is on her way home. The patient himself due to dementia is a very poor historian. He remembers that he had chest pain. Currently, he stated that it resolved. When I asked how long was duration of chest pain, he showed me a length of 2 inches between his finger and stated "that long." He denies any shortness of breath. His initial troponin is 0.02, second troponin was 0.2. The patient was started on heparin drip in the emergency department and he is going to be placed on overnight observation with a diagnosis of unstable angina. PAST MEDICAL HISTORY: 1. Dementia. 2. History of positive cardiac stress test last noted on 04/02/19; at that point, the decision was made to treat medically and observe. 3. History of [place] in 2017. 4. History of nephrolithiasis. 5. History of chronic back pain. MEDICATIONS: Those could not be confirmed by the patient's , but according to the patient's discharge medications, those include: 1. Amlodipine 2.5 mg daily. 2. Zinc sulfate 220 mg daily. 3. Oxford bark supplement daily. 4. [place]-3 fatty acids 1 capsule daily. 5. NAC supplement 1 tablet daily. 6. Milk thistle supplement 1 dose daily. 7. Metoprolol tartrate 12.5 mg every 12 hours. 8. Namenda 10 mg b.i.d. 9. Imdur 30 mg daily. 10. Vitamin B12 1000 mcg daily. 11. Vitamin D3 5000 units every other day. 12. Lipitor 40 mg daily. 13. Aspirin 81 mg daily. 14. Ashwagandha 500 mg daily. 15. Amino acids 1 capsule daily. 16. Alpha lipoic acid 600 mg. ALLERGIES: No known drug allergies. SOCIAL HISTORY: The patient lives with his , Shaista, who is his healthcare proxy and water mangle tender. 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 There is no history of tobacco, alcohol, or drug use. FAMILY HISTORY: Mother had a stroke in her 60s. Father with history of multiple MIs. REVIEW OF SYSTEMS: Please see history of present illness. Otherwise, all the 12 systems reviewed with the patient and were otherwise negative. Please note, the patient currently does not complain of chest pain. Please note that the patient is a very poor historian due to his dementia. PHYSICAL EXAMINATION GENERAL: The patient is a very pleasant 63-year-old male, who is in no acute distress. The patient is alert and oriented x2. He knows that he is in the hospital. He thinks that he is "about 58 years old." He does not know the time. VITAL SIGNS: Blood pressure of 131/75, heart rate of 79 and regular, respiratory rate 16, oxygen saturation 94% on room air, temperature 98.9. HEENT: Head: Atraumatic, normocephalic. Eyes: Pupils are equal, reactive to light and accommodation. Oropharynx clear. Mucosa moist. NECK: Supple. No JVD. No bruits bilaterally. RESPIRATORY: Clear to auscultation bilaterally. CARDIOVASCULAR: Regular rate and rhythm. No murmur. ABDOMEN: Soft and nontender. Bowel sounds are present in all 4 quadrants. EXTREMITIES: There is no edema. Pulses are +2 bilaterally. No clubbing or cyanosis. NEUROLOGIC: On neuro evaluation, speech is clear. Cranial nerves II through XII grossly intact. Motor strength is 5/5 bilaterally. DIAGNOSTIC STUDIES/LAB DATA: Laboratory data show a white blood cell count of 6.4, hemoglobin of 15.2, hematocrit of 45, and platelets of 155. INR of 1.13. Sodium was 141, potassium 4.3, chloride 106, carbon dioxide 29, BUN 21, creatinine 1.22. Liver function tests unremarkable apart from alkaline phosphatase of 112. Troponin initially was 0.02, second troponin was 0.24. The patient's EKG showed sinus tachycardia with a heart rate of 92 beats per minute with left axis deviation and below [address] depressions in V4 to V6. Comparing with an EKG from 03/31/19, the ST depressions appeared to be more pronounced. Portable chest x-ray is pending at the time of dictation. ASSESSMENT AND PLAN: 1. The patient appears to have unstable angina. At this point, the patient is going to be treated with a heparin drip as well as Imdur, beta-piotr, Norvasc , aspirin, and Lipitor. Cardiology consult will be requested in the morning. 2. For DVT prophylaxis, the patient is going to placed on heparin as mentioned above. 3. For his dementia, Namenda is going to be continued. TOTAL TIME SPENT: Approximately 55 minutes was spent on the admission of this patient, more than half of that time was spent face to face with the patient during the interview and physical exam. [id number]/CPS #: [id number] MTDGonzales
[2019-04-13 07:08] LABS: ABS Eosinophils 0.2 10^3/ul (0-0.6); ABS Monocytes 0.8 10^3/ul (0-0.8); ABS Neutrophils 4.8 10^3/ul (1.5-7.7); Eosinophil % 3.1 %; Hematocrit 45 % (42-52); Hemoglobin 15.7 g/dL (14.0-18.0); Mean Corpuscular HGB Conc 35 g/dL (31-36); Mean Corpuscular Hemoglobin 31 pg (27-31); Mean Corpuscular Volume 87 fL (80-94); Mean Platelet Volume 8.3 fL (7.4-10.4); Nucleated Red Blood Cells % 0.1; Platelet Count 227 10^3/uL (150-450); Red Blood Count 5.13 10^6 /uL (4.18-5.48); Red Cell Distribution Width 14 % (10-15); White Blood Count 6.8 10^3/uL (3.5-10.8)
[2019-04-13 07:28] LABS: Troponin I 2.2 ng/mL (<0.04)
[2019-04-13] MEDS ORDERED: Metoprolol Tartrate TAB* 25 MG PO SCH (09:00)
--- NOTE | 2019-04-13 09:00 | PN ---
Subjective Date of Service: 04/13/19 Interval History: Pt is feeling ok. When I ask if he is still having chest pain, he states it is mostly resolved. When I ask does that mean there is still some discomfort he states it is nothing that he isn't used to. He denies any SOB. He denies any issues with constipation/diarrhea. Objective Active Medications: Acetaminophen (Tylenol Tab*) 650 mg PO Q4H PRN PRN Reason: FEVER/PAIN Al Hydrox/Mg Hydrox/Simethicone (Maalox Plus*) 30 ml PO Q6H PRN PRN Reason: INDIGESTION Amlodipine Besylate (Norvasc Tab*) 2.5 mg PO DAILY [facility] Aspirin (Aspirin 81 Mg Chew Tab*) 81 mg PO DAILY [facility] Atorvastatin Calcium (Lipitor*) 40 mg PO QPM [facility] Cyanocobalamin (Vitamin B12 Tab*) 1,000 mcg PO QAM [facility] Docusate Sodium (Colace Cap*) 100 mg PO BID [facility] Heparin Sodium (Porcine) (Heparin Vial(*)) 0 units IV .BOLUS PRN PRN Reason: HEPARIN DRIP PROTOCOL Heparin Sodium/Dextrose (Heparin Drip 25,000 Units(*)) 25,000 units in 500 mls @ 0 mls/hr IV PER RATE SIVAN; Protocol Isosorbide Mononitrate (Imdur Er Tab*) 30 mg PO DAILY [facility] Memantine (Namenda Tab*) 10 mg PO BID [facility] Metoprolol Tartrate (Lopressor Tab*) 12.5 mg PO Q12HR [facility] Morphine Sulfate (Morphine Inj (Syringe))*) 1 mg IV Q4H PRN PRN Reason: Pain - Mod to severe Nitroglycerin (Nitroglycerin Tab 0.4 Mg*) 0.4 mg SL Q5M PRN PRN Reason: ANGINA Senna (Senokot Tab*) 1 tab PO BID [facility] Vital Signs - 8 hr 04/13/19 04/13/19 04/13/19 01:00 01:07 01:37 Temperature Pulse Rate 80 83 81 Respiratory 15 14 17 Rate Blood Pressure 115/77 139/86 (mmHg) O2 Sat by Pulse 95 95 97 Oximetry 04/13/19 04/13/19 04/13/19 01:55 02:00 02:45 Temperature Pulse Rate Respiratory 17 12 17 Rate Blood Pressure 160/92 148/104 (mmHg) O2 Sat by Pulse Oximetry 04/13/19 04/13/19 04/13/19 03:05 03:07 03:15 Temperature 98 F 97.9 F Pulse Rate 82 80 77 Respiratory 18 16 Rate Blood Pressure 144/76 160/92 (mmHg) O2 Sat by Pulse 95 97 Oximetry 04/13/19 04:00 Temperature Pulse Rate 75 Respiratory Rate Blood Pressure (mmHg) O2 Sat by Pulse Oximetry Oxygen Devices in Use Now: None Appearance: Middle aged male lying in bed, NAD Eyes: No Scleral Icterus Ears/Nose/Mouth/Throat: Mucous Membranes Moist Respiratory: Symmetrical Chest Expansion and Respiratory Effort, Clear to Auscultation Cardiovascular: NL Sounds; No Murmurs; No JVD, RRR, No Edema Abdominal: NL Sounds; No Tenderness; No Distention Extremities: No Clubbing, Cyanosis Skin: No Nodules or Sclerosis Neurological: - - alert, pleasantly confused Result Diagrams: 04/13/19 06:51 04/13/19 02:30 Assess/Plan/Problems-Billing Mr Osborne is a 63 yo M who has a h/o early onset dementia and CAD with abnormal stress test 10 days ago who presented to the ER with c/o chest pain and was admitted for unstable angina. - Patient Problems (1) NSTEMI (non-ST elevated myocardial infarction) Current Visit: Yes Status: Acute Code(s): I21.4 - NON-ST ELEVATION (NSTEMI) MYOCARDIAL INFARCTION SNOMED Code(s): 09904985 Comment: Troponin continues to climb. It is not clear if the patient is having ongoing chest pain at this time due to his dementia. Will get follow up EKG now. Cardiology consult requested. According to the d/c summary from last admission, conservative management was going to be attempted first however if he had continued chest pain, catheterization should be considered. Continue ASA , lipitor, metoprolol, imdur and heparin drip. Await further recommendations. (2) Dementia Current Visit: Yes Status: Acute Code(s): F03.90 - UNSPECIFIED DEMENTIA WITHOUT BEHAVIORAL DISTURBANCE SNOMED Code(s): 35249191 Comment: Continue namenda. (3) DVT prophylaxis Current Visit: Yes Status: Acute Code(s): Z29.9 - ENCOUNTER FOR PROPHYLACTIC MEASURES, UNSPECIFIED SNOMED Code(s): 497441425 Comment: heparin drip (4) Full code status Current Visit: Yes Status: Acute Code(s): Z78.9 - OTHER SPECIFIED HEALTH STATUS SNOMED Code(s): 101273156
[2019-04-13] MEDS: Heparin DRIP 25,000 UNITS(*) 25,000 UNITS/500 ML BAG IV SCH ×2 (09:49→16:26)
[2019-04-13] MEDS: Cyanocobalamin TAB* 500 MCG PO SCH (10:00)
[2019-04-13] MEDS: Isosorbide Mononitrate ER TAB* 30 MG PO SCH (10:00)
[2019-04-13] MEDS: Memantine TAB* 10 MG PO SCH ×2 (10:00→20:02)
[2019-04-13] MEDS: Senna TAB PO SCH ×2 (10:00→20:03)
[2019-04-13] MEDS: Docusate CAP* 100 MG PO SCH ×2 (10:00→20:03)
[2019-04-13] MEDS: Aspirin 81 mg CHEW TAB* 81 MG TAB.CHEW PO SCH (10:01)
[2019-04-13] MEDS: amLODIPine TAB* 5 MG PO SCH (10:02)
[2019-04-13] MEDS ORDERED: Metoprolol Tartrate TAB* 25 MG PO ONE (10:19)
[2019-04-13] MEDS ORDERED: Clopidogrel TAB* 300 MG PO ONE (10:56)
[2019-04-13 11:18] LABS: Troponin I 3.09 ng/mL (<0.04)
[2019-04-13] MEDS ORDERED: Nitro 2% OINT* (Nitroglycerin) 1 INCH/PAK PAK ONE (12:37)
[2019-04-13] MEDS: Nitro 2% OINT* (Nitroglycerin) 1 INCH/PAK PAK TOPICAL SCH (12:38)
--- NOTE | 2019-04-13 15:04 | CONS ---
CC: Dr. Timur Gagnon CARDIOLOGY CONSULTATION: DATE OF CONSULT: 04/13/19 REQUESTING PHYSICIAN: Dr. Ally Moffett. REASON FOR EVALUATION: Chest discomfort, non-ST elevation KS. HISTORY OF PRESENT ILLNESS: This is a very pleasant 63-year-old gentleman who has a history of coronary disease, apparently had an KS in 2006 and had a cath at [facility]. He was told of a 70% lesion and it was felt that he did not need revascularization at that time. He did well until about 2 weeks ago when he had chest discomfort and was admitted. He had a bump in his troponins. His troponin peaked at 0.08 on 03/31/19. He had an echocardiogram that revealed an EF of 55% to 60% with mild MR, mild biatrial enlargement. He was on aspirin, Crestor and metoprolol was added. They did not want to proceed with catheterization at that time given his Alzheimer's and was decided to try medical therapy. His said that since he has gone home, he has had exertional chest pain when exerting himself such as swimming gently in the pool or walking up a slight incline. He does have a house on 3 levels and he is able to go up and down the levels of the house. She also noticed that he has chest pain at the end of his dosing periods for his medications. She has noted that about an hour before he was due for his evening medications, he will sometimes develop chest discomfort, which resolves within 20 minutes. Yesterday , he apparently went to the pool with his grandchildren, had chest pain when he was in the deep water, he tried to swim a little bit, resolved. She was not there and then last night at rest, about 8 p.m., he developed chest discomfort left-sided which was 10/10 according to the . She said it was not associated with gas or diaphoresis, or change in position, she decided to take him to the hospital. By the time he got to the hospital, it was resolving and apparently resolved mostly overnight. When asked about pain, he says he does not think he has much pain, but he is unable to completely exclude it. His thinks he is about at his baseline at this point in time. He denies syncope or near syncope or palpitations, no orthopnea or PND. PAST MEDICAL HISTORY: Includes hypertension which has been well controlled recently; hyperlipidemia, he was started on statin in August and apparently he had been off statins for a while. He has a history of Alzheimer's. He is able to stay at home on his own for few minutes, but does not drive. He denies tobacco use. He has a history of nephrolithiasis and chronic back pain. Of note, he also had a stress test last admission that was abnormal, that included large inferolateral fixed defect with area of bertha-infarct ischemia, ejection fraction 50%, inferior wall hypokinesis is noted. According to Dr. Prado's note from 04/02/19, it was felt that he had had a non-ST elevation KS in 2006 with 70% LAD lesion treated medically, although I do not have confirmation of that. (addendum Dr. Kennedy's office note of a few ago does describe a cath report which included a 70% LAD lesion.) MEDICATIONS: His medications as an outpatient have been : 1. Amlodipine 2.5 mg a day. 2. Zinc sulfate 220 mg a day. 3. [place] bark. 4. Tranquillity-3 5. Metoprolol tartrate 12.5 q. 12. 6. Imdur 30 mg daily. 7. Vitamin B12 1000 mcg. 8. Atorvastatin 40 mg a day. 9. Aspirin 81 mg a day. 10. Ashwagandha 500 mg daily. 11. Amino acids 1 cap a day. 12. Alpha lipoic acid 600 mg a day. As an inpatient, he is on: 1. Acetaminophen. 2. Maalox. 3. Amlodipine 2.5. 4. Aspirin 81 mg a day. 5. Atorvastatin 40 mg a day. 6. IV heparin. 7. Imdur 30 mg a day. 8. Namenda 10 mg b.i.d. 9. Metoprolol 25 mg q. 12. ALLERGIES: He denies any allergies. SOCIAL HISTORY: He denies tobacco use. He occasionally has a cup of coffee and his says that when she accidently gives him caffeinated coffee, he can develop chest pain, so he has not been drinking coffee in the last 2 weeks for the most part and he usually does not have alcohol, but yesterday his children gave him a beer. 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 Normally, he is very active in his yard doing yard work and cutting wood and doing chores. REVIEW OF SYSTEMS: Review of systems x10 was negative except as above. PHYSICAL EXAM: He is a well-developed, well-nourished gentleman, in no apparent distress. Afebrile, pulse 80, blood pressure 160/92 at 3 a.m.. He does not know the year or the date. He does not really know where he is, he defers to his on that. He knows who he is. On physical exam, no significant JVD. Carotids are 2+. No cervical adenopathy or thyromegaly. Cardiac Exam: S1, S2 without murmurs, gallops or rubs. Chest: Clear. Extremities: No CVAT. Abdomen: Bowel sounds present. Nontender. No hepatosplenomegaly. Femoral pulses are intact with left femoral bruits. Distal pulses intact. No edema. Motor strength 5/5 bilaterally. Deep tendon reflexes 2/4. Alert and oriented x person. DIAGNOSTIC STUDIES/LAB DATA: EKG from this morning revealed sinus rhythm with counterclockwise rotation and non-specific inferior ST-T changes similar to the EKG of last night except for slightly more T-wave inversions. EKG from revealed more lateral ST-T depressions of 0.5 mm. The EKG of 03/31/[address]ressions inferiorly with T-wave inversions, compared to this visit that the lateral STs were not as depressed. An EKG from March 2013 revealed upright T-waves inferiorly. Laboratories include a normal CBC; troponins were 0.02, 0.24 and 0.81, and 2.2. Creatinine of 1.22 the last night, down to 1.03 today. IMPRESSION AND PLAN: My impression is that Mr. Osborne appears to have coronary disease and acute coronary syndrome, non-ST elevation myocardial infarction. He also has dementia and hypertension. It appears that he continued to have symptoms since discharge last week, but may have been suboptimally medicated. I did discuss the situation with him and his , at this point given the progressive symptoms and troponin elevation, we can consider catheterization; however, given his comorbidities, I suggest the followin. We will increase his beta-piotr. 2. We will add topical nitrates. 3. We will discuss the case with interventionalist, Dr. Boothe and consider for catheterization. 4. We will try to obtain his cath films from [facility]. Further recommendations depend on his clinical course. 5. Medical decision making: Complex. [id number]/[facility] #: [id number] addendum: D/w Dr. Boothe, our interventionalist. We have requested the cath report and films from [facility] and he will evaluate the patient for cath. TRISTEN DOMINGO
[2019-04-13 15:06] LABS: Troponin I 5.21 ng/mL (<0.04)
[2019-04-13] MEDS ORDERED: Nitro Patch/OINT Remove TOPICAL SCH (18:00)
[2019-04-13] MEDS: Atorvastatin* 40 MG TAB PO SCH (18:28)
[2019-04-13] MEDS: Metoprolol Tartrate TAB* 25 MG PO SCH (20:02)
[2019-04-14] MEDS: Nitro 2% OINT* (Nitroglycerin) 1 INCH/PAK PAK TOPICAL SCH (06:01)
[2019-04-14 06:11] LABS: ABS Eosinophils 0.2 10^3/ul (0-0.6); ABS Lymphocytes 1.1 10^3/ul (1.0-4.8); ABS Monocytes 0.7 10^3/ul (0-0.8); ABS Neutrophils 4.7 10^3/ul (1.5-7.7); Eosinophil % 2.8 %; Hematocrit 42 % (42-52); Hemoglobin 14.9 g/dL (14.0-18.0); Lymphocyte % 16.9 %; Mean Corpuscular HGB Conc 35 g/dL (31-36); Mean Corpuscular Hemoglobin 30 pg (27-31); Mean Corpuscular Volume 86 fL (80-94); Mean Platelet Volume 8.3 fL (7.4-10.4); Nucleated Red Blood Cells % 0.1; Platelet Count 238 10^3/uL (150-450); Red Blood Count 4.91 10^6 /uL (4.18-5.48); Red Cell Distribution Width 14 % (10-15); White Blood Count 6.7 10^3/uL (3.5-10.8)
[2019-04-14 06:31] LABS: Anion Gap 8 mmol/L (2-11); BUN/Creatinine Ratio 16.5 (8-20); Blood Urea Nitrogen 16 mg/dL (6-24); CO2 Carbon Dioxide 25 mmol/L (22-32); Calcium 9.1 mg/dL (8.6-10.3); Chloride 105 mmol/L (101-111); EGFR Non-African American 77.7 (>60); Glucose 103 mg/dL (70-100); Potassium 3.9 mmol/L (3.5-5.0); Sodium 138 mmol/L (135-145)
[2019-04-14 06:46] LABS: Troponin I 1.68 ng/mL (<0.04)
--- NOTE | 2019-04-14 07:38 | PN ---
Subjective Date of Service: 04/14/19 Interval History: Pt is feeling well this AM. He states he has no chest pain, discomfort, tightness or pressure. He denies any SOB. No other issues today. Objective Active Medications: Acetaminophen (Tylenol Tab*) 650 mg PO Q4H PRN PRN Reason: FEVER/PAIN Al Hydrox/Mg Hydrox/Simethicone (Maalox Plus*) 30 ml PO Q6H PRN PRN Reason: INDIGESTION Amlodipine Besylate (Norvasc Tab*) 2.5 mg PO DAILY [facility] Last Admin: 04/13/19 10:02 Dose: 2.5 mg Aspirin (Aspirin 81 Mg Chew Tab*) 81 mg PO DAILY [facility] Last Admin: 04/13/19 10:01 Dose: 81 mg Atorvastatin Calcium (Lipitor*) 40 mg PO QPM [facility] Last Admin: 04/13/19 18:28 Dose: 40 mg Clopidogrel Bisulfate (Plavix Tab*) 75 mg PO DAILY [facility] Cyanocobalamin (Vitamin B12 Tab*) 1,000 mcg PO QAM [facility] Last Admin: 04/13/19 10:00 Dose: 1,000 mcg Docusate Sodium (Colace Cap*) 100 mg PO BID [facility] Last Admin: 04/13/19 20:03 Dose: 100 mg Heparin Sodium (Porcine) (Heparin Vial(*)) 0 units IV .BOLUS PRN PRN Reason: HEPARIN DRIP PROTOCOL Last Admin: 04/13/19 16:25 Dose: 2,000 units Heparin Sodium/Dextrose (Heparin Drip 25,000 Units(*)) 25,000 units in 500 mls @ 0 mls/hr IV PER RATE [facility]; Protocol Last Admin: 04/13/19 16:26 Dose: 19 mls/hr Isosorbide Mononitrate (Imdur Er Tab*) 30 mg PO DAILY [facility] Last Admin: 04/13/19 10:00 Dose: 30 mg Memantine (Namenda Tab*) 10 mg PO BID [facility] Last Admin: 04/13/19 20:02 Dose: 10 mg Metoprolol Tartrate (Lopressor Tab*) 25 mg PO Q12HR [facility] Last Admin: 04/13/19 20:02 Dose: 25 mg Morphine Sulfate (Morphine Inj (Syringe))*) 1 mg IV Q4H PRN PRN Reason: Pain - Mod to severe Nitroglycerin (Nitroglycerin Tab 0.4 Mg*) 0.4 mg SL Q5M PRN PRN Reason: ANGINA Senna (Senokot Tab*) 1 tab PO BID [facility] Last Admin: 04/13/19 20:03 Dose: 1 tab Vital Signs - 8 hr 04/14/19 03:51 Temperature 98.8 F Pulse Rate 78 Respiratory 16 Rate Blood Pressure 128/81 (mmHg) O2 Sat by Pulse 99 Oximetry Oxygen Devices in Use Now: None Appearance: Middle aged male lying in bed, NAD Eyes: No Scleral Icterus Ears/Nose/Mouth/Throat: Mucous Membranes Moist Respiratory: Symmetrical Chest Expansion and Respiratory Effort, Clear to Auscultation Cardiovascular: NL Sounds; No Murmurs; No JVD, RRR, No Edema Abdominal: NL Sounds; No Tenderness; No Distention Extremities: No Clubbing, Cyanosis Skin: No Nodules or Sclerosis Neurological: - - oriented to situation Result Diagrams: 04/14/19 06:01 04/14/19 06:01 Assess/Plan/Problems-Billing Mr Osborne is a 63 yo M who has a h/o early onset dementia and CAD with abnormal stress test 10 days ago who presented to the ER with c/o chest pain and was admitted for unstable angina. - Patient Problems (1) NSTEMI (non-ST elevated myocardial infarction) Current Visit: Yes Status: Acute Code(s): I21.4 - NON-ST ELEVATION (NSTEMI) MYOCARDIAL INFARCTION SNOMED Code(s): 09467567 Comment: Troponin peaked at 5.21 last evening. He is now chest pain free. Will continue heparin drip, ASA, plavix, lipitor, increased dose of metoprolol, amlodipine and imdur. Stop NTG paste as pt is chest pain free without any paste on. Will need to ultimately decide if pt to undergo cardiac catheterization. (2) Dementia Current Visit: Yes Status: Acute Code(s): F03.90 - UNSPECIFIED DEMENTIA WITHOUT BEHAVIORAL DISTURBANCE SNOMED Code(s): 93875663 Comment: Continue namenda. (3) DVT prophylaxis Current Visit: Yes Status: Acute Code(s): Z29.9 - ENCOUNTER FOR PROPHYLACTIC MEASURES, UNSPECIFIED SNOMED Code(s): 928675551 Comment: heparin drip (4) Full code status Current Visit: Yes Status: Acute Code(s): Z78.9 - OTHER SPECIFIED HEALTH STATUS SNOMED Code(s): 327489879
[2019-04-14] MEDS: Cyanocobalamin TAB* 500 MCG PO SCH (08:28)
[2019-04-14] MEDS: Docusate CAP* 100 MG PO SCH ×2 (08:28→20:23)
[2019-04-14] MEDS: Senna TAB PO SCH ×2 (08:28→20:23)
[2019-04-14] MEDS: Isosorbide Mononitrate ER TAB* 30 MG PO SCH (08:28)
[2019-04-14] MEDS: amLODIPine TAB* 5 MG PO SCH (08:29)
[2019-04-14] MEDS: Aspirin 81 mg CHEW TAB* 81 MG TAB.CHEW PO SCH (08:30)
[2019-04-14] MEDS: Clopidogrel TAB* 75 MG PO SCH (08:30)
[2019-04-14] MEDS: Metoprolol Tartrate TAB* 25 MG PO SCH ×2 (08:31→20:23)
[2019-04-14] MEDS: Memantine TAB* 10 MG PO SCH ×2 (08:35→20:23)
[2019-04-14] MEDS ORDERED: Haloperidol INJ IV/IM* 5 MG/ML AMP IV SLOW PU ONE (10:24)
[2019-04-14] MEDS ORDERED: Potassium Chloride* LIQUID 20 MEQ/15 ML UDC PO ONE (14:15)
[2019-04-14] MEDS: Atorvastatin* 40 MG TAB PO SCH (19:41)
[2019-04-15 06:57] LABS: ABS Eosinophils 0.2 10^3/ul (0-0.6); ABS Lymphocytes 1.1 10^3/ul (1.0-4.8); ABS Monocytes 0.7 10^3/ul (0-0.8); ABS Neutrophils 3.5 10^3/ul (1.5-7.7); Eosinophil % 3.4 %; Hematocrit 45 % (42-52); Hemoglobin 15.8 g/dL (14.0-18.0); Lymphocyte % 20.8 %; Mean Corpuscular HGB Conc 35 g/dL (31-36); Mean Corpuscular Hemoglobin 30 pg (27-31); Mean Corpuscular Volume 87 fL (80-94); Mean Platelet Volume 8.4 fL (7.4-10.4); Nucleated Red Blood Cells % 0.1; Platelet Count 227 10^3/uL (150-450); Red Blood Count 5.24 10^6 /uL (4.18-5.48); Red Cell Distribution Width 14 % (10-15); White Blood Count 5.5 10^3/uL (3.5-10.8)
[2019-04-15 07:17] LABS: EGFR African American 80.4 (>60); EGFR Non-African American 66.5 (>60)
--- NOTE | 2019-04-15 08:16 | PN ---
Subjective Date of Service: 04/15/19 Interval History: Pt is feeling well. No c/o chest pain or SOB. He is a minimalist when answering questions. He states there are no issues. Objective Active Medications: Acetaminophen (Tylenol Tab*) 650 mg PO Q4H PRN PRN Reason: FEVER/PAIN Al Hydrox/Mg Hydrox/Simethicone (Maalox Plus*) 30 ml PO Q6H PRN PRN Reason: INDIGESTION Amlodipine Besylate (Norvasc Tab*) 2.5 mg PO DAILY [facility] Last Admin: 04/14/19 08:29 Dose: 2.5 mg Aspirin (Aspirin 81 Mg Chew Tab*) 81 mg PO DAILY [facility] Last Admin: 04/14/19 08:30 Dose: 81 mg Atorvastatin Calcium (Lipitor*) 40 mg PO QPM [facility] Last Admin: 04/14/19 19:41 Dose: 40 mg Clopidogrel Bisulfate (Plavix Tab*) 75 mg PO DAILY [facility] Last Admin: 04/14/19 08:30 Dose: 75 mg Cyanocobalamin (Vitamin B12 Tab*) 1,000 mcg PO QAM [facility] Last Admin: 04/14/19 08:28 Dose: 1,000 mcg Docusate Sodium (Colace Cap*) 100 mg PO BID [facility] Last Admin: 04/14/19 20:23 Dose: 100 mg Heparin Sodium (Porcine) (Heparin Vial(*)) 0 units IV .BOLUS PRN PRN Reason: HEPARIN DRIP PROTOCOL Last Admin: 04/13/19 16:25 Dose: 2,000 units Heparin Sodium/Dextrose (Heparin Drip 25,000 Units(*)) 25,000 units in 500 mls @ 0 mls/hr IV PER RATE [facility]; Protocol Last Admin: 04/13/19 16:26 Dose: 19 mls/hr Isosorbide Mononitrate (Imdur Er Tab*) 30 mg PO DAILY [facility] Last Admin: 04/14/19 08:28 Dose: 30 mg Memantine (Namenda Tab*) 10 mg PO BID [facility] Last Admin: 04/14/19 20:23 Dose: 10 mg Metoprolol Tartrate (Lopressor Tab*) 25 mg PO Q12HR [facility] Last Admin: 04/14/19 20:23 Dose: 25 mg Morphine Sulfate (Morphine Inj (Syringe))*) 1 mg IV Q4H PRN PRN Reason: Pain - Mod to severe Nitroglycerin (Nitroglycerin Tab 0.4 Mg*) 0.4 mg SL Q5M PRN PRN Reason: ANGINA Senna (Senokot Tab*) 1 tab PO BID [facility] Last Admin: 04/14/19 20:23 Dose: 1 tab Vital Signs - 8 hr 04/15/19 04/15/19 04/15/19 04:00 07:21 07:26 Temperature 97.8 F 98.0 F Pulse Rate 64 77 Respiratory 16 16 16 Rate Blood Pressure 105/70 118/83 (mmHg) O2 Sat by Pulse 96 96 Oximetry Oxygen Devices in Use Now: None Appearance: Middle aged male sitting up in bed, watching TV, NAD Eyes: No Scleral Icterus Ears/Nose/Mouth/Throat: Mucous Membranes Moist Respiratory: Symmetrical Chest Expansion and Respiratory Effort, - - Few RLL crackles otherwise CTA Cardiovascular: NL Sounds; No Murmurs; No JVD, RRR, No Edema Abdominal: NL Sounds; No Tenderness; No Distention Extremities: No Clubbing, Cyanosis Skin: No Nodules or Sclerosis Neurological: - - alert, oriented to situation Result Diagrams: 04/15/19 06:23 04/15/19 06:23 Assess/Plan/Problems-Billing Mr Osborne is a 63 yo M who has a h/o early onset dementia and CAD with abnormal stress test 10 days ago who presented to the ER with c/o chest pain and was admitted for unstable angina. - Patient Problems (1) NSTEMI (non-ST elevated myocardial infarction) Current Visit: Yes Status: Acute Code(s): I21.4 - NON-ST ELEVATION (NSTEMI) MYOCARDIAL INFARCTION SNOMED Code(s): 82131005 Comment: Pt remains chest pain free at this time. He remains on the heparin drip, ASA, plavix, lipitor, metoprolol, amlodipine and imdur. Plan is for cardiac catheterization today. Dr. Kennedy will speak with the patient's prior to taking him to the lab. (2) Dementia Current Visit: Yes Status: Acute Code(s): F03.90 - UNSPECIFIED DEMENTIA WITHOUT BEHAVIORAL DISTURBANCE SNOMED Code(s): 29120311 Comment: Continue namenda. (3) DVT prophylaxis Current Visit: Yes Status: Acute Code(s): Z29.9 - ENCOUNTER FOR PROPHYLACTIC MEASURES, UNSPECIFIED SNOMED Code(s): 258770824 Comment: heparin drip (4) Full code status Current Visit: Yes Status: Acute Code(s): Z78.9 - OTHER SPECIFIED HEALTH STATUS SNOMED Code(s): 611698727
--- NOTE | 2019-04-15 09:30 | ECHO ---
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 *Referring Physician: * Ian Kennedy MD *Reading Physician: * Chris Martinez MD Indications: Myocardial Infarction (new). History: PMH: Myocardial infarction. Dementia. Functional status: Following treatment plan for sleep apnea. Conclusions Summary: - Left ventricle: Systolic function is at the lower limits of normal. The estimated ejection fraction is 50-55%. Wall motion is normal; there are no regional wall motion abnormalities. - Right ventricle: Systolic function is low normal. - Mitral valve: There is no regurgitation. - Aortic valve: There is trace regurgitation. - Tricuspid valve: There is physiologic regurgitation. - Pericardium, extracardiac: There is no significant pericardial effusion. - Compared tp study of 04/01/19, there is no change. Study data: Transthoracic echocardiogram. Procedure: Transthoracic echocardiography was performed. Image quality was fair. Complete 2D, spectral Doppler, and color flow Doppler. Location: Bedside. Patient status: Inpatient. Patient room number: 448. Rhythm: Normal sinus rhythm. Findings Left ventricle: The cavity size is normal. There is mild concentric hypertrophy. Systolic function is at the lower limits of normal. The estimated ejection fraction is 50-55%. Wall motion is normal; there are no regional wall motion abnormalities. Doppler parameters are consistent with abnormal left ventricular relaxation (grade 1 diastolic dysfunction). Right ventricle: The cavity size is mildly dilated. Systolic function is low normal. The tricuspid jet envelope definition is inadequate for estimation of RV systolic pressure. There are no indirect findings (abnormal RV volume or geometry, altered pulmonary flow velocity profile, or leftward septal displacement) which would suggest moderate or severe pulmonary hypertension. Left atrium: The atrium is mildly dilated. Right atrium: The atrium is mildly dilated. Mitral valve: The leaflets are mildly thickened. There is no evidence of stenosis. There is no regurgitation. Aortic valve: The valve is trileaflet. The leaflets are mildly thickened. Thickening, consistent with sclerosis. There is no evidence of stenosis. There is trace regurgitation. Tricuspid valve: The leaflets are normal thickness. There is no evidence of stenosis. There is physiologic regurgitation. Pulmonic valve: The leaflets are normal thickness. There is no evidence of stenosis. There is trace regurgitation. Aorta: Ascending aorta: The ascending aorta is appears normal. The aortic root appears normal. The aortic arch appears normal. Pericardium: A prominent pericardial fat pad is present. There is no significant pericardial effusion. Pulmonary arteries: The main pulmonary artery is normal-sized. Systolic pressure can not be accurately estimated. Systemic veins: Inferior vena cava: The vessel is normal in size. There is (>= 50%) respiratory change in the IVC dimension. Measurements Left ventricle Value Ref Right atrium continued Value Ref JUVENTINO, LAX (L) 4.0 cm 4.2 - 5.8 SI dim, ES, A4C (H) 5.7 cm 3.4 - 5.3 ESD, LAX 3.0 cm 2.5 - 4.0 Estimated RAP 3 mm Hg --------- FS, LAX 25 % 25 - 43 PW, ED, LAX (H) 1.1 cm 0.6 - 1.0 Aortic valve Value Ref FS 25 % 25 - 43 Tito diam, ED 2.1 cm --------- PW, ED (H) 1.1 cm 0.6 - 1.0 Peak v, S 1.17 m/sec --------- E', lat tito, TDI (L) 4.9 cm/sec >=10.0 VTI, S 25.3 cm -- ------- E/e', lat tito, 9 Mean grad, S 3.0 mm Hg ----- ---- TDI Peak grad, S 5.0 mm Hg --------- E', med tito, TDI (L) 3.8 cm/sec >=7.0 LVOT/AV, VTI ratio 0.67 -- ------- E/e', med tito, 12 TDI Mitral valve Value Ref E', avg, TDI 4.4 cm/sec Peak E 0.45 m/sec ----- ---- E/e', avg, TDI 10 <=14 Peak A 0.61 m/sec -- ------- Decel time 306 ms --------- LVOT Value Ref Peak E/A ratio 0.7 --------- Peak pratima, S 0.81 m/sec VTI, S 17.0 cm Pulmonic valve Value Ref Mean grad, S 1 mm Hg Peak v, S 1.39 m/sec --------- Peak grad, S 8.0 mm Hg --------- Ventricular septum Value Ref IVS, ED (H) 1.1 cm 0.6 - 1.0 Aortic root Value Ref Root diam 3.2 cm <4.1 Right ventricle Value Ref JUVENTINO, LAX 3.3 cm Ascending aorta Value Ref JUVENTINO minor ax, (H) 4.4 cm 1.9 - 3.5 AAo AP diam, S 3.6 cm --------- A4C mid Aortic arch Value Ref Left atrium Value Ref Arch diam 2.1 cm --------- AP dim, ES 3.60 cm 3.00 - 4.00 Decending aorta Value Ref ML dim, A4C 4.3 cm Efrain peak pratima 0.65 m/sec --------- SI dim, A4C 5.4 cm Vol/bsa, ES, 1-p 27 ml/m^2 12 - 37 Inferior vena cava Value Ref A4C Diam 1.4 cm --------- Vol/bsa, ES, A/L 30 ml/m^2 16 - 34 Right atrium Value Ref SI dim, ES (H) 5.7 cm 3.4 - 5.3 ML dim, ES, A4C 4.4 cm 2.6 - 4.4 Legend: (L) and (H) pasquale values outside specified reference range. Prepared and electronically signed by Chris Martinez MD 04/15/2019 09:29
[2019-04-15] MEDS: amLODIPine TAB* 5 MG PO SCH (09:34)
[2019-04-15] MEDS: Metoprolol Tartrate TAB* 25 MG PO SCH ×2 (09:34→21:23)
[2019-04-15] MEDS: Isosorbide Mononitrate ER TAB* 30 MG PO SCH (09:34)
[2019-04-15] MEDS: Aspirin 81 mg CHEW TAB* 81 MG TAB.CHEW PO SCH (09:34)
[2019-04-15] MEDS: Docusate CAP* 100 MG PO SCH ×2 (09:34→21:23)
[2019-04-15] MEDS: Clopidogrel TAB* 75 MG PO SCH (09:34)
[2019-04-15] MEDS: Cyanocobalamin TAB* 500 MCG PO SCH (09:34)
[2019-04-15] MEDS: Memantine TAB* 10 MG PO SCH ×2 (09:35→21:23)
[2019-04-15] MEDS: Senna TAB PO SCH ×2 (09:35→21:23)
[2019-04-15] MEDS ORDERED: Heparin(*) 1000 UNIT/ML 10 ML VIAL CATH LAB IV ONE (13:43)
[2019-04-15] MEDS ORDERED: Heparin 2 UNITS/ML IVPREMIX* 3,000 UNIT/1,500 ML BAG IV ONE (13:43)
[2019-04-15] MEDS ORDERED: fentaNYL* 50 MCG/ML 2 ML VIAL (100 MCG VIAL) ONE (13:43)
[2019-04-15] MEDS ORDERED: VERAPAMIL 2.5 MG/ML 2 ML VIAL ** 5 mg/2 ml ONE (13:43)
[2019-04-15] MEDS ORDERED: Midazolam* 1 MG/ML 5 ML VIAL (5 MG) ONE (13:43)
[2019-04-15] MEDS ORDERED: nitroGLYCERIN DRIP* 25,000 MCG/250 ML BTL ONE (13:43)
[2019-04-15] MEDS ORDERED: Iodixanol 320 (CONTRAST) 100 ML SDV ONE ×2 (13:44→14:21)
[2019-04-15] MEDS ORDERED: Lidocaine 1% INJ* 10 MG/ML 30 ML SDV ONE (13:44)
[2019-04-15] MEDS ORDERED: Nitroglycerin TAB 0.4 MG* 0.4 MG TAB SL PRN (15:25)
[2019-04-15] MEDS ORDERED: NS 0.9% 1000 ML** 1,000 ML IV SCH (15:30)
[2019-04-15] MEDS ORDERED: Atorvastatin* 40 MG TAB PO SCH (18:00)
[2019-04-16 05:48] LABS: ABS Eosinophils 0.1 10^3/ul (0-0.6); ABS Lymphocytes 0.8 10^3/ul (1.0-4.8); ABS Monocytes 0.7 10^3/ul (0-0.8); ABS Neutrophils 4.6 10^3/ul (1.5-7.7); Hematocrit 46 % (42-52); Hemoglobin 15.8 g/dL (14.0-18.0); Lymphocyte % 12.3 %; Mean Corpuscular HGB Conc 34 g/dL (31-36); Mean Corpuscular Hemoglobin 30 pg (27-31); Mean Corpuscular Volume 87 fL (80-94); Nucleated Red Blood Cells % 0.1; Platelet Count 233 10^3/uL (150-450); Red Blood Count 5.26 10^6 /uL (4.18-5.48); Red Cell Distribution Width 14 % (10-15); White Blood Count 6.2 10^3/uL (3.5-10.8)
[2019-04-16 06:13] LABS: EGFR African American 87.7 (>60); EGFR Non-African American 72.5 (>60)
--- NOTE | 2019-04-16 07:59 | CATH ---
CC: Dr. Jonnathan Beyer; Dr. María Prado * CARDIAC CATHETERIZATION REPORT: DATE OF PROCEDURE: 04/15/19 INDICATIONS FOR PROCEDURE: Asked to perform cardiac catheterization on this 63- year-old gentleman with a history of recurrent non-ST- elevation myocardial infarctions with recurrent chest discomfort, rule out the presence of critical coronary artery disease. PROCEDURE: Coronary arteriography, balloon angioplasty, and placement of a 2.75 x 20 mm long Synergy drug-eluting stent in the mid circumflex artery followed by placement of a 2.5 x 12 mm long Synergy drug-eluting stent in the mid to distal circumflex artery. CONSENT: A lengthy discussion was had with the patient, his over the telephone, with a nurse present in the room and the daughter present in the room (of note, the patient has a history of dementia and the had power of assistant prosecuting attorney for medical care) regarding the risks and benefits of cardiac catheterization. They understood it and wished to proceed. APPROACH UTILIZED: The right radial artery was assessed under ultrasound and found to be acceptable for an approach, and as such, the right radial artery approach was utilized. EQUIPMENT UTILIZED: 1. The right radial artery sheath - a 6-[employer] Glidesheath Slender. 2. Diagnostic catheter, a 5-[employer] Helenian TIG4 catheter. 3. The diagnostic guidewire was a Reyna exchange length wire and a Wholey regular length wire. 4. The guide catheter was a 6-[employer] Helenian IL3.5 Heartrail III guide catheter. 5. The diagnostic wires utilized were 2 BMW guidewires. 6. The angioplasty balloon catheter was 2.5 x 15 mm NC Emerge balloon. 7. The stents utilized were 2.75 x 20 mm Synergy drug-eluting stent, a 2.5 x 12 mm long Synergy drug-eluting stent. 8. The closure device she utilized was a regular Vasc Band by [employer]. PRECARDIAC CATHETERIZATION LABORATORY RESULTS: Hemoglobin and hematocrit were 15.8 and 45, platelet count was 227,000. Sodium 138, potassium 3.9, chloride 105, bicarb 25, BUN and creatinine were 16 and 0.97. MEDICATIONS GIVEN: A radial artery cocktail including 300 mcg of nitroglycerin and 3 mg of verapamil was given. The patient was on a heparin drip already. An additional heparin of 3000 was given intravenously. The patient had already received his aspirin and his clopidogrel on the floor of the hospital. Intracoronary nitroglycerin was given as well. DESCRIPTION OF PROCEDURE: The patient was brought to the cardiovascular laboratory, where a formal time-out was performed. He was prepped and draped in sterile fashion. The right radial artery area was anesthetized with 1% lidocaine. The right radial artery was cannulated and the sheath was placed. The radial artery cocktail was administered. Diagnostic cardiac catheterization was performed utilizing the TIG4 catheter. Following this, decision was made to intervene into the mid circumflex artery. Of note, an ACT was checked and additional heparin of 3000 units was given with a repeat ACT found to be in therapeutic range. Guide views were obtained and 2 BMW interventional guidewires were placed, one in a small obtuse marginal branch and the other in the body of the circumflex. Balloon angioplasty was performed to the body of circumflex followed by stenting of the main circumflex. Of note , the obtuse marginal branch appeared to be totally occluded at that point. The patient was asymptomatic with no chest discomfort. Attempts were made to rewire the circumflex obtuse marginal branch with the original wire still in place. This was unsuccessful. Eventually, the wire in the obtuse marginal branch was pulled. The small circumflex obtuse marginal branch was still occluded with a question of may be faint collateral filling. The main body of the circumflex area was assessed in multiple views, and the catheter and wires were removed and hemostasis was obtained with a Vasc Band. The reverse Barbeau was a B. The total contrast used was 240 cc of Visipaque dye. The radiation exposure included 28.6 minutes of fluoro time. The air kerma radiation was 2899 mGy. The DAP radiation was 14,164 microgray/m2. RESULTS: CORONARY ARTERIOGRAPHY: A. Left coronary artery: 1. Left main - there was calcification seen in the distal left main with luminal reduction of approximately 30%. 2. Left anterior descending artery - the left anterior descending artery supplied a thin first diagonal branch followed by a mid diagonal branch which bifurcated. The LAD continued to the apical region and mildly on to the distal inferior wall. The proximal portion of the left anterior descending artery had a 60% lesion seen at the first septal syrup maker cook. There was calcium involved in this area. The mid area of the left anterior descending artery had a 45% narrowing noted. 3. Circumflex artery - a nondominant vessel supplying a thin first obtuse marginal branch followed by a thin short second obtuse marginal branch before a critical 90% to 95% stenosis seen in the mid circumflex. There was a small diagonal branch originating from this area whose caliber appeared to be 1.7 mm or less. This had a ostial narrowing of 70%. Continuation of the circumflex supplied a low lying bifurcating obtuse marginal branch. There was a 60% to 65 % lesion seen past this point. B. Right coronary artery - a dominant vessel supplying the PDA and multiple posterior left ventricular branches. There was an area of proximal narrowing of 55%. The mid segment had mild narrowing at 30%. There was a large acute marginal branch that was noted to supply blood flow to the distal inferior wall. This had mild luminal irregularities. INTERVENTION INTO MID CIRCUMFLEX ARTERY: Successful reduction of critical 90% to 95% lesion with balloon angioplasty and placement of a 2.75 x 20 mm long Synergy drug-eluting stent with 0% residual stenosis, MUNA-3 flow, no dissection seen. Successful reduction of a 60 % to 65% distal lesion, which appeared to be slightly worse after balloon angioplasty with primary stenting, with a 2.5 x 12 mm long Synergy drug-eluting stent with 0% residual stenosis, MUNA-3 flow, no dissection seen. Of note, the small obtuse marginal branch was totally occluded after stent placement and was unable to be rewired. The patient had no active chest discomfort and a 6-lead EKG showed no acute ST segment changes. OVERALL ASSESSMENT: Successful intervention to critical mid circumflex with subsequent asymptomatic occlusion of a small obtuse marginal branch originating from the area as well as successful intervention into a more distal lesion in the body of the circumflex as described above. The patient should be maintained on aspirin and clopidogrel for a year's time, after which aspirin alone would be reasonable. Continued aggressive risk factor management will be maintained and I will increase the atorvastatin to 80 mg a day. Continued medical management as he is already on for his coronary artery disease will be maintained. [id number]/[facility] #: [id number] [facility] CENTERGonzales
[2019-04-16 08:41] LABS: Calcium 9.5 mg/dL (8.6-10.3); HDL Cholesterol 29.9 mg/dL; Potassium 3.9 mmol/L (3.5-5.0)
[2019-04-16] MEDS: Cyanocobalamin TAB* 500 MCG PO SCH (08:58)
[2019-04-16] MEDS: Clopidogrel TAB* 75 MG PO SCH (08:58)
[2019-04-16] MEDS: amLODIPine TAB* 5 MG PO SCH (08:58)
[2019-04-16] MEDS: Aspirin 81 mg CHEW TAB* 81 MG TAB.CHEW PO SCH (08:58)
[2019-04-16] MEDS: Metoprolol Tartrate TAB* 25 MG PO SCH (08:58)
[2019-04-16] MEDS: Memantine TAB* 10 MG PO SCH (08:58)
[2019-04-16] MEDS: Isosorbide Mononitrate ER TAB* 30 MG PO SCH (08:58)
[2019-04-16 09:02] LABS: BUN/Creatinine Ratio 12.6 (8-20)
[2019-04-16] MEDS: Docusate CAP* 100 MG PO SCH (10:35)
[2019-04-16] MEDS: Senna TAB PO SCH (10:35)
[2019-04-16 13:37] VITALS: BP 112/75
--- NOTE | 2019-04-16 14:37 | DS ---
CC: Dr. Jonnathan Beyer; Dr. Prado, interior decorator; Dr. Boothe * DISCHARGE SUMMARY: DATE OF ADMISSION: 04/13/19 DATE OF DISCHARGE: 04/16/19 FINAL DISCHARGE DIAGNOSES: 1. Coronary artery disease. 2. Dementia. 3. Non-ST elevation myocardial infarction. 4. Hyperlipidemia. 5. Hypertension. HOSPITAL COURSE: The patient presented on 04/13/19 for recurrent chest pain. He has underlying history of dementia and he was recently released from the hospital on 04/03/19 for chest pain as well. At that time he had a positive stress test. It was elected to pursue medical treatment during his last hospitalization given his comorbid condition, which include dementia. Nonetheless, 10 days later he came back to the emergency room with chest pain, retrosternal. At that time he had some EKG changes, more pronounced ST depression, and his troponin did rule in with the troponin on presentation was 0.02 and it peaked it at 5.21. He was seen and evaluated by Cardiology and they recommended cardiac catheterization and he underwent cardiac cath on by Dr. Ian Kennedy, who found high-grade stenosis, 90% to 95% stenosis of his left circumflex, in the mid section, which was successfully stented, and another lesion, 60% - 65% distal lesion, which was also stented using a drug- eluting stent. The patient tolerated the procedure well. He was maintained in the ICU postoperatively with a heparin drip. Today, he was seen and evaluated by me as well Dr. Kennedy. He has been ambulating and he was deemed stable from cardiac point of view to be released. I also evaluated the patient earlier and this afternoon. He ambulated twice, no chest pain. at bedside updated with the plan, who concurred with the plan, and he is deemed stable for discharge as outlined below. PHYSICAL EXAM: Vital Signs: Temperature is 98.4, pulse 68, respiratory rate 18 , satting 95, blood pressure 102/59. General: He is awake, alert, pleasant, in no distress. He is lightly confused, but pleasant. Head and Neck: Normocephalic, atraumatic. Lungs: Clear to auscultation bilaterally. Cardiovascular: S1, S2. Regular rate and rhythm. Extremities: He does have good radial pulse, right, at the site of cannulization, as well as on the left. Good peripheral pulse distally to lower extremities bilaterally. Abdomen: Positive bowel sounds. Soft, nontender, nondistended. No rebound. No guarding. BRANCH SERVICE ASSOCIATE: No focal sensory deficit. He is disoriented to place and time. Pleasant. Follows simple command. INPATIENT DIAGNOSTIC STUDY: CBC, multiple, grossly unremarkable, specifically stable H and H. Admitting hemoglobin 15.2, hematocrit 45. Discharge date hemoglobin 15.8, hematocrit 46. Chemistry fairly unremarkable with normal electrolyte. Admitting BUN of 21 and discharge BUN 13/1.03. Troponin: Admission troponin 0.02, 3 hours later was 0.24 on 04/12/19, and 3 hours later 0.81, and on the morning of 04/13/19 was 2.20. It peaked at 5.21. EKG on presentation, 04/12/19: He had an EKG which was significant for sinus rhythm, rate of 92, with ST-depression in the lateral lead, more prominent in the V3, V4, V5, V6, with persistent mild ST-depression, but improved compared to his presentation. His last EKG today, 04/16/19, normal sinus rhythm, mild left axis deviation at negative 35 degrees, otherwise unremarkable. INPATIENT CONSULTATION: Cardiology, initially with Dr. Gagnon and Dr. Kennedy. PROCEDURES: He had a cardiac cath, 04/15/19. Result: Mid left circumflex stenosis, 90% - 95%, status post drug-eluting stent placement, and distal left circumflex 60% - 65%, status post drug-eluting stent placement. DISCHARGE MEDICATION: The patient was discharged on the followin. New medication is Plavix 75 mg daily. Recommended to remain on it for a year in combination with aspirin. 2. Lipitor was increased from 40 up to 80 mg, as recommended by Dr. Kennedy. 3. Continue isosorbide 30 daily. 4. Namenda 10 b.i.d. 5. Lopressor 12.5 b.i.d., continue. 6. Nitroglycerin p.r.n. 7. Aspirin 81 mg daily. 8. Amlodipine 5 mg daily. 9. Tylenol p.r.n. 10. Resume his home supplementation of zinc sulfate. 11. [place]-3 fish oil. 12. Vitamin B12. 13. Amino acid. DISCHARGE CONDITION: Stable. DISCHARGE DISPOSITION: Home. [id number]/[facility] #: [id number] MTDD
== END 2019-04-16 13:20 | disposition home or self-care (01) | DRG 247 ==
LOC: ED 20:39 → MEDTELE 04-13 01:45 → OBSVTOIN 04-14 15:11 → ICU 04-15 15:25
PROVIDERS: ADMIT Internal Medicine; ATTEND Internal Medicine
PROC: B211YZZ Fluoroscopy of Multiple Coronary Arteries using Other Contrast (ICD-10-PCS; 2019-04-15)
PROC: 027035Z Dilation of Coronary Artery, One Artery with Two Drug-eluting Intraluminal Devices, Percutaneous Approach (ICD-10-PCS; principal; 2019-04-15 13:30)
DX: I21.4 Non-ST elevation (NSTEMI) myocardial infarction (principal); E78.5 Hyperlipidemia, unspecified; I10 Essential (primary) hypertension; G89.29 Other chronic pain; M54.9 Dorsalgia, unspecified; I25.110 Atherosclerotic heart disease of native coronary artery with unstable angina pectoris; E78.00 Pure hypercholesterolemia, unspecified; G47.30 Sleep apnea, unspecified; M06.9 Rheumatoid arthritis, unspecified; G30.9 Alzheimer's disease, unspecified; F02.80 Dementia in other diseases classified elsewhere, unspecified severity, without behavioral disturbance, psychotic disturbance, mood disturbance, and anxiety; I25.2 Old myocardial infarction; Z79.02 Long term (current) use of antithrombotics/antiplatelets; Z79.82 Long term (current) use of aspirin; Z87.442 Personal history of urinary calculi; Z82.3 Family history of stroke; Z82.49 Family history of ischemic heart disease and other diseases of the circulatory system
CPT/HCPCS: 36415; 71045; 76937; 80048; 80053; 80061; 82565; 84484; 85025; 85347; 85610; 85730; 87641; 93005; 93306; 93454; 99284; A9270-GY; C1725; C1769; C1876; C9600-LC; G0378; J1644; J2250; J3010